=== PATIENT | male | born 1975 | race Caucasian/White ===

== ENCOUNTER 2016-08-02 00:11 | Emergency (ER) | payer BC ==
[2016-08-02] MEDS ORDERED: MORPHINE SULFATE 10 MG/ML INJ IV ONE (01:46)
[2016-08-02] MEDS ORDERED: ONDANSETRON HCL INJ/PF 4 MG/2 ML SDV IV ONE (01:46)
[2016-08-02] MEDS ORDERED: MAG HYDROX/AL HYDROX/SIMETH SUSP 30 ML UDCUP PO ONE (01:50)
[2016-08-02] MEDS ORDERED: METOCLOPRAMIDE HCL ORAL SOLN 10 MG/10 ML UDCUP PO ONE (01:50)
[2016-08-02] MEDS ORDERED: LIDOCAINE 2% VISCOUS SOLN 20 ML UDCUP PO ONE (01:50)
[2016-08-02] MEDS ORDERED: NORMAL SALINE 1000 ML 1,000 ML IV ONE (01:50)
--- NOTE | 2016-08-02 01:52 | ER Document Report ---
ED General - General Chief Complaint: Abdominal Pain Stated Complaint: VOMITING Mode of Arrival: Ambulatory Information source: Patient Notes: 41 yr old male hx of hernia repair presents with complaints of abd pain in the epigastric region with 15 episodes of vomiting over the past 4 hours. pt denies any fevers or chills TRAVEL OUTSIDE OF THE [place] IN LAST 30 DAYS: No - HPI Onset: Just prior to arrival Onset/Duration: Sudden Quality of pain: Burning Severity: Mild Pain Level: 2 Associated symptoms: Nausea, Vomiting Exacerbated by: Denies Relieved by: Denies Similar symptoms previously: No Recently seen / treated by doctor: No - Related Data Allergies/Adverse Reactions: codeine [Codeine] Allergy (Verified 08/14/13 08:40) Past Medical History - Social History Smoking Status: Never Smoker Cigarette use (# per day): No Chew tobacco use (# tins/day): No Smoking Education Provided: No Frequency of alcohol use: Occasional Drug Abuse: None Family History: Reviewed & Not Pertinent - no hx of breast ca Neurological Medical History: Reports: Hx Migraine Renal/ Medical History: Denies: Hx Peritoneal Dialysis - Immunizations Hx Diphtheria, Pertussis, Tetanus Vaccination: No Review of Systems - Review of Systems Notes: REVIEW OF SYSTEMS: CONSTITUTIONAL : Denies fever, chills, or sweats. Denies recent illness. EENT: Denies eye, ear, throat, or mouth pain or symptoms. Denies nasal or sinus congestion or discharge. Denies throat, tongue, or mouth swelling or difficulty swallowing. CARDIOVASCULAR: Denies chest pain. Denies palpitations or racing or irregular heart beat. Denies ankle edema. RESPIRATORY: Denies cough, cold, or chest congestion. Denies shortness of breath, difficulty breathing, or wheezing. GASTROINTESTINAL: Denies abdominal pain or distention. Denies nausea, vomiting , or diarrhea. Denies blood in vomitus, stools, or per rectum. Denies black, tarry stools. Denies constipation. GENITOURINARY: Denies difficulty urinating, painful urination, burning, frequency, blood in urine, or discharge. MUSCULOSKELETAL: Denies back or neck pain or stiffness. Denies joint pain or swelling. SKIN: Denies rash, lesions or sores. HEMATOLOGIC : Denies easy bruising or bleeding. LYMPHATIC: Denies swollen, enlarged glands. NEUROLOGICAL: Denies confusion or altered mental status. Denies passing out or loss of consciousness. Denies dizziness or lightheadedness. Denies headache. Denies weakness or paralysis or loss of use of either side. Denies problems with gait or speech. Denies sensory loss, numbness, or tingling. Denies seizures. PSYCHIATRIC: Denies anxiety or stress. Denies depression, suicidal ideation, or homicidal ideation. ALL OTHER SYSTEMS REVIEWED AND NEGATIVE. Dictation was performed using [employer] voice recognition software PHYSICAL EXAMINATION: GENERAL: Well-appearing, well-nourished and in no acute distress. HEAD: Atraumatic, normocephalic. EYES: Pupils equal round and reactive to light, extraocular movements intact, sclera anicteric, conjunctiva are normal. ENT: Nares patent, oropharynx clear without exudates. Moist mucous membranes. NECK: Normal range of motion, supple without lymphadenopathy LUNGS: Breath sounds clear to auscultation bilaterally and equal. No wheezes rales or rhonchi. HEART: Regular rate and rhythm without murmurs ABDOMEN: Soft, tender in the epigastric region with mild guarding Musculoskeletal: Normal range of motion, no pitting or edema. No cyanosis. NEUROLOGICAL: Cranial nerves grossly intact. Normal speech, normal gait. Normal sensory, motor exams PSYCH: Normal mood, normal affect. SKIN: Warm, Dry, normal turgor, no rashes or lesions noted. Physical Exam - Vital signs Vitals: Temp Pulse Resp BP Pulse Ox 97.5 F 72 20 131/107 H 97 08/02/16 00:29 08/02/16 00:29 08/02/16 00:29 08/02/16 00:29 08/02/16 00:29 Course - Re-evaluation Re-evalutation: 08/02/16 01:59 Lab work imaging pending patient has probable gastric ulcer based on location 08/02/16 04:[address] Argueta surgeon does not believe there is any life- threatening issues 08/02/16 04:25 ct abd negative , will dc home as gerd ulceration , pt otherwise stable After performing a Medical Screening Examination, I estimate there is LOW risk for ACUTE APPENDICITIS, BOWEL OBSTRUCTION, ACUTE CHOLECYSTITIS, PERFORATED DIVERTICULITIS, INCARCERATED HERNIA, PANCREATITIS, PELVIC INFLAMMATORY DISEASE, PERFORATED ULCER, ECTOPIC , or TUBO-OVARIAN ABSCESS, thus I consider the discharge disposition reasonable. Also, there is no evidence or peritonitis , sepsis, or toxicity. The patient and I have discussed the diagnosis and risks , and we agree with discharging home with close follow-up with the understanding that symptoms and presentations can change. We also discussed returning to the Emergency Department immediately if new or worsening symptoms occur. We have discussed the symptoms which are most concerning (e.g., bloody stool, fever, changing or worsening pain, vomiting) that necessitate immediate return. - Vital Signs Vital signs: Temp Pulse Resp BP Pulse Ox 97.5 F 72 18 131/107 H 97 08/02/16 00:29 08/02/16 00:29 08/02/16 01:30 08/02/16 00:29 08/02/16 00:29 - Laboratory Result Diagrams: 08/02/16 02:40 08/02/16 02:40 Laboratory results interpreted by me: 08/02/16 08/02/16 02:40 02:40 WBC 13.7 H Seg Neutrophils % 90.9 H Lymphocytes % 6.0 L Monocytes % 2.7 L Absolute Neutrophils 12.4 H Glucose 136 H ALT 99 H - Diagnostic Test Radiology reviewed: Image reviewed, Reports reviewed Discharge - Discharge Clinical Impression: Abdominal pain Qualifiers: Abdominal location: epigastric Qualified Code(s): R10.13 - Epigastric pain Nausea & vomiting Qualifiers: Vomiting type: unspecified Vomiting Intractability: non-intractable Qualified Code(s): R11.2 - Nausea with vomiting, unspecified Condition: Stable Disposition: HOME, SELF-CARE Instructions: Abdominal Pain ([facility]) Prescriptions: Ondansetron HCl [Zofran 8 mg Tablet] 8 mg PO Q8HP PRN #14. tablet PRN Reason: Famotidine [Pepcid 20 mg Tablet] 20 mg PO DAILY #30 tablet Hydrocodone/Acetaminophen [Dunseith 5-325 mg Tablet] 1 tab PO Q6 #10 tablet Referrals: BELLA MAYORGA MD [ACTIVE STAFF] - Follow up tomorrow
[2016-08-02 02:59] LABS: ABSOLUTE LYMPHOCYTES (AUTO) 0.8 10^3/uL (0.5-4.7); ABSOLUTE MONOCYTES (AUTO) 0.4 10^3/uL (0.1-1.4); ABSOLUTE NEUT (AUTO) 12.4 10^3/uL (1.7-8.2); BASOPHILS % (AUTO) 0.3 % (0-2); EOSINOPHILS % (AUTO) 0.1 % (0-6); HEMATOCRIT 46.1 % (37.9-51.0); HEMOGLOBIN 15.4 g/dL (13.5-17.0); HGB HCT DIFFERENCE 0.1; MEAN CORPUSCULAR HEMOGLOBIN 28.7 pg (27.0-33.4); MEAN CORPUSCULAR HGB CONC 33.4 g/dL (32.0-36.0); MEAN CORPUSCULAR VOLUME 86 fl (80-97); MONOCYTES % (AUTO) 2.7 % (3-13); RED BLOOD COUNT 5.35 10^6/uL (4.35-5.55); RED CELL DISTRIBUTION WIDTH 12.8 % (11.5-14.0); SEGMENTED NEUTROPHILS % (AUTO) 90.9 % (42-78); WHITE BLOOD COUNT 13.7 10^3/uL (4.0-10.5)
[2016-08-02 03:11] LABS: ALANINE AMINOTRANSFERASE 99 U/L (21-72); ALKALINE PHOSPHATASE 75 U/L (38-126); ANION GAP 14 (5-19); ASPARTATE AMINO TRANSFERASE 40 U/L (17-59); BILIRUBIN,TOTAL 0.6 mg/dL (0.2-1.3); BLOOD UREA NITROGEN 14 mg/dL (7-20); CALCIUM 10.1 mg/dL (8.4-10.2); CARBON DIOXIDE 27 mmol/L (22-30); CHLORIDE 103 mmol/L (98-107); CREATININE RESULT 0.96 mg/dL (0.52-1.25); GLUCOSE 136 mg/dL (75-110); LIPASE 100.6 U/L (23-300); POTASSIUM 4.6 mmol/L (3.6-5.0); TOTAL PROTEIN 8.2 g/dL (6.3-8.2)
[2016-08-02 05:44] VITALS: BP 122/90
== END 2016-08-02 05:30 | disposition home or self-care (01) ==
LOC: ER 00:11
DX: R10.13 Epigastric pain (principal); R11.2 Nausea with vomiting, unspecified; Z88.6 Allergy status to analgesic agent
CPT/HCPCS: 99284; 96361; 96374; 96375; 36415; 83690; 85025; 80053; 74177; J3490; J2270; J2405; J7030

== ENCOUNTER 2016-08-03 08:52 | Inpatient (IN) | payer BC ==
[2016-08-03] MEDS ORDERED: ONDANSETRON HCL INJ/PF 4 MG/2 ML SDV IV ONE ×2 (09:30→12:25)
[2016-08-03] MEDS ORDERED: MORPHINE SULFATE 10 MG/ML INJ IV ONE (09:30)
[2016-08-03] MEDS ORDERED: NORMAL SALINE 1000 ML 1,000 ML IV ONE (09:30)
[2016-08-03] MEDS ORDERED: MAG HYDROX/AL HYDROX/SIMETH SUSP 30 ML UDCUP PO ONE (10:04)
[2016-08-03] MEDS ORDERED: METOCLOPRAMIDE HCL ORAL SOLN 10 MG/10 ML UDCUP PO ONE (10:04)
[2016-08-03] MEDS ORDERED: LIDOCAINE 2% VISCOUS SOLN 20 ML UDCUP PO ONE (10:04)
--- NOTE | 2016-08-03 10:11 | EKG REPORT ---
SEVERITY:- OTHERWISE NORMAL ECG - SINUS TACHYCARDIA LEFT AXIS DEVIATION : Confirmed by: Jaymie Monk MD 03-Aug-2016 10:10:49
[2016-08-03 10:20] LABS: APPEARANCE,URINE CLEAR; BILIRUBIN,URINE NEGATIVE (NEGATIVE); GLUCOSE, URINE NEGATIVE (NEGATIVE); KETONES,URINE NEGATIVE (NEGATIVE); LEUKOCYTE ESTERASE,URINE NEGATIVE (NEGATIVE); NITRITE,URINE NEGATIVE (NEGATIVE); PROTEIN,URINE NEGATIVE (NEGATIVE); URINE SPECIFIC GRAVITY 1.016; UROBILINOGEN,URINE NEGATIVE mg/dL (<2.0)
[2016-08-03 11:33] LABS: ABSOLUTE EOSINOPHILS # (AUTO) 0.1 10^3/uL (0.0-0.6); ABSOLUTE LYMPHOCYTES (AUTO) 1.6 10^3/uL (0.5-4.7); ABSOLUTE MONOCYTES (AUTO) 0.8 10^3/uL (0.1-1.4); ABSOLUTE NEUT (AUTO) 9.9 10^3/uL (1.7-8.2); BASOPHILS % (AUTO) 0.4 % (0-2); EOSINOPHILS % (AUTO) 0.8 % (0-6); HEMATOCRIT 49.3 % (37.9-51.0); HEMOGLOBIN 16.2 g/dL (13.5-17.0); HGB HCT DIFFERENCE -0.7; LYMPHOCYTES % (AUTO) 12.8 % (13-45); MEAN CORPUSCULAR HEMOGLOBIN 28.5 pg (27.0-33.4); MEAN CORPUSCULAR HGB CONC 32.9 g/dL (32.0-36.0); MEAN CORPUSCULAR VOLUME 87 fl (80-97); MONOCYTES % (AUTO) 6.6 % (3-13); RED BLOOD COUNT 5.69 10^6/uL (4.35-5.55); SEGMENTED NEUTROPHILS % (AUTO) 79.4 % (42-78); WHITE BLOOD COUNT 12.5 10^3/uL (4.0-10.5)
[2016-08-03 11:45] LABS: ALANINE AMINOTRANSFERASE 123 U/L (21-72); ALBUMIN 4.6 g/dL (3.5-5.0); ALKALINE PHOSPHATASE 81 U/L (38-126); ANION GAP 15 (5-19); ASPARTATE AMINO TRANSFERASE 68 U/L (17-59); BILIRUBIN,TOTAL 1.5 mg/dL (0.2-1.3); BLOOD UREA NITROGEN 13 mg/dL (7-20); CALCIUM 9.6 mg/dL (8.4-10.2); CARBON DIOXIDE 26 mmol/L (22-30); CHLORIDE 100 mmol/L (98-107); CREATININE RESULT 0.83 mg/dL (0.52-1.25); GLUCOSE 105 mg/dL (75-110); POTASSIUM 4.6 mmol/L (3.6-5.0); SODIUM 140.5 mmol/L (137-145); TOTAL PROTEIN 7.6 g/dL (6.3-8.2)
[2016-08-03] MEDS ORDERED: HYDROMORPHONE HCL INJ/PF 2 MG/ML AMPULE IV ONE (12:25)
--- NOTE | 2016-08-03 12:26 | ER Document Report ---
ED GI/ - General Chief Complaint: Abdominal Pain Stated Complaint: ABDOMINAL PAIN Mode of Arrival: Ambulatory Information source: Patient Notes: 41-year-old male presents to the emergency department complaining of right upper quadrant abdominal pain. Patient reports non-provoked, sharp/stabbing pain to right upper quadrant worse with movement and deep breathing. Reports associated multiple episodes of nausea/vomiting. Patient states symptoms started approximately 2 days ago and was evaluated in this emergency department but symptoms have persisted. States initially pain was to epigastric area but now has moved to right upper quadrant and is worse in intensity. Denies fever, chest pain, blood in emesis or stool. TRAVEL OUTSIDE OF THE [place] IN LAST 30 DAYS: No - HPI Patient complains to provider of: Abdominal pain Timing/Duration: Persistent Quality of pain: Sharp, Stabbing Severity at maximum: Severe Severity in ED: Moderate Pain Level: 4 Location: RUQ Associated symptoms: Nausea, Vomiting Exacerbated by: Supine, Movement, Deep breathing Relieved by: Sitting, Remaining still Similar symptoms previously: Yes Recently seen / treated by doctor: Yes - Related Data Allergies/Adverse Reactions: codeine [Codeine] Adverse Reaction (Unknown, Verified 08/03/16 13:01) VOMITING Home Medications: Current Home Medications No Home Medications 08/03/16 [History] Past Medical History - General Information source: Patient, Relative - Social History Smoking Status: Never Smoker Chew tobacco use (# tins/day): No Frequency of alcohol use: None Drug Abuse: None Lives with: Family Family History: Reviewed & Not Pertinent - no hx of breast ca Patient has suicidal ideation: No Patient has homicidal ideation: No Neurological Medical History: Reports: Hx Migraine Renal/ Medical History: Denies: Hx Peritoneal Dialysis Past Surgical History: Reports: Hx Abdominal Surgery - hernia repair with mesh - Immunizations Hx Diphtheria, Pertussis, Tetanus Vaccination: Yes Review of Systems - Review of Systems Constitutional: No symptoms reported EENT: No symptoms reported Cardiovascular: No symptoms reported Respiratory: No symptoms reported Gastrointestinal: See HPI Genitourinary: No symptoms reported Male Genitourinary: No symptoms reported Musculoskeletal: No symptoms reported Skin: No symptoms reported Hematologic/Lymphatic: No symptoms reported Neurological/Psychological: No symptoms reported -: Yes All other systems reviewed and negative Physical Exam - Vital signs Vitals: Temp Pulse Resp BP Pulse Ox 97.6 F 116 H 20 152/99 H 95 08/03/16 09:01 08/03/16 09:01 08/03/16 09:01 08/03/16 09:01 08/03/16 09:01 Interpretation: Normal - General General appearance: Appears well, Alert In distress: None - HEENT Head: Normocephalic, Atraumatic Eyes: Normal Pupils: PERRL - Respiratory Respiratory status: No respiratory distress Chest status: Nontender Breath sounds: Normal - CTAB Chest palpation: Normal - Cardiovascular Rhythm: Regular Heart sounds: Normal auscultation Murmur: No Pulses: Normal: Radial Normal capillary refill: Yes - Abdominal Inspection: Normal Distension: No distension Bowel sounds: Normal Tenderness: Tender - Tenderness with palpation to right upper quadrant. No: McBurney's point Organomegaly: No organomegaly - Back Back: Normal, Nontender - Extremities General upper extremity: Normal inspection, Nontender, Normal color, Normal ROM , Normal temperature General lower extremity: Normal inspection, Nontender, Normal color, Normal ROM , Normal temperature, Normal weight bearing. No: Alex's sign - Neurological Neuro grossly intact: Yes Cognition: Normal Orientation: AAOx4 Alexa Coma Scale Eye Opening: Spontaneous Deeth Coma Scale Verbal: Oriented Alexa Coma Scale Motor: Obeys Commands Alexa Coma Scale Total: 15 Speech: Normal Motor strength normal: LUE, RUE, LLE, RLE Sensory: Normal - Psychological Associated symptoms: Normal affect, Normal mood - Skin Skin Temperature: Warm Skin Moisture: Dry Skin Color: Normal Course - Re-evaluation Re-evalutation: 08/03/16 12:15 Patient hemodynamically stable, in no distress, afebrile. AST, ALT, Alk phos and total bilirubin slightly elevated when compared to previous lab work. RUQ abdominal ultrasound shows biliary sludge and possible gallstones. Patient presentation and findings were discussed with surgeon Dr. Argueta who evaluated patient in the ED and agrees to assume care and admit for likely cholecystectomy. - Vital Signs Vital signs: Temp Pulse Resp BP Pulse Ox 97.6 F 116 H 18 113/87 H 93 08/03/16 09:01 08/03/16 09:01 08/03/16 10:20 08/03/16 10:20 08/03/16 10:20 - Laboratory Result Diagrams: 08/03/16 09:20 08/03/16 09:20 Laboratory results interpreted by me: 08/03/16 08/03/16 09:20 09:20 WBC 12.5 H RBC 5.69 H Seg Neutrophils % 79.4 H Lymphocytes % 12.8 L Absolute Neutrophils 9.9 H Total Bilirubin 1.5 H AST 68 H ALT 123 H - Diagnostic Test Radiology reviewed: Image reviewed, Reports reviewed - EKG Interpretation by Me EKG shows normal: Sinus rhythm, [place], Intervals, QRS Complexes, ST-T Waves Rate: Tachycardia Rhythm: NSR When compared to previous EKG there are: No significant change Discharge - Discharge Clinical Impression: RUQ abdominal pain Condition: Stable Disposition: ADMITTED INPATIENT Admitting Provider: Surgicalist - Dr. rAgueta Unit Admitted: Surgical Floor
[2016-08-03] MEDS ORDERED: ONDANSETRON HCL INJ/PF 4 MG/2 ML SDV IV PRN (12:48)
--- NOTE | 2016-08-03 13:38 | HISTORY AND PHYSICAL E ---
History and Physical NAME: MIGUEL SOTO : 1975 AGE: 41Y ADMITTED: 08/03/2016 ROOM: REASON FOR ADMISSION: Cholelithiasis with biliary colic. HISTORY OF PRESENT ILLNESS: A 41-year-old male who presented to the emergency room complaining of significant right upper quadrant pain radiating to the back without any history of nausea, vomiting, fever or chills. The patient was seen in the emergency room approximately 36 hours ago by me when he presented to the hospital with epigastric pain but when seen by me, he had no abdominal tenderness and CAT scan of the abdomen was normal and patient was sent home. However, over the last 36 hours, the patient developed right upper quadrant pain that was 8/10, which was unrelieved with position or dietary status. The patient returned to the emergency room with stable vital signs and on examination, he now had epigastric and right upper quadrant tenderness. The patient underwent laboratory data, evaluation, and was found to have a mildly elevated white count at 12,000 but his H and H showed 16.2 and 49.3, and his total bilirubin was 1.5 with elevated AST and ALT at 68 and 123, respectively. The patient then underwent an ultrasound of the abdomen which revealed increased echogenicity in the dependent portion of the gallbladder, most consistent with biliary sludge, although tiny gallstones could not be excluded. There was no gallbladder wall thickening or pericholecystic fluid. The patient was informed of the findings and admission has been recommended for laparoscopic cholecystectomy in the morning. PAST MEDICAL AND SURGICAL HISTORY: The patient has no history of diabetes mellitus, hypertension, cardiac, renal, pulmonary or liver disease or bleeding tendency. No history of anesthesia problems in the family. The patient had umbilical hernia approximately 2 years ago repaired. The patient denies any injuries in the past. ALLERGIES: NONE. MEDICATIONS: None. REVIEW OF SYSTEMS: Patient denies any symptoms referable to the ear, nose and throat, respiratory or cardiovascular systems. Gastrointestinal symptoms as in history of present illness. Patient denies any symptoms referable to genitourinary, musculoskeletal, integumentary, lymphatic, endocrine or psychiatric systems. SOCIAL HISTORY: The patient does not smoke or drink. 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 PHYSICAL EXAMINATION: GENERAL: Reveals a 41-year-old male who was mildly obese, who is normally developed, who is in no acute distress at this time. VITAL SIGNS: Blood pressure 115/87, pulse 102, respirations 18, saturation is 93% on room air. HEENT: The patient has no conjunctival pallor or scleral icterus. Mucous membranes are pink. NECK: Supple without nodes, masses, thyroid, JVD or bruits. Trachea midline. CHEST: Chest wall shows good excursions. LUNGS: Clear anteriorly with good entry bilaterally. CARDIOVASCULAR: Patient is mildly tachycardic. There are no murmurs or gallops noted. ABDOMEN: Soft, obese with mild to moderate epigastric and right upper quadrant tenderness with mild guarding. There is a negative Vazquez sign. There is no organomegaly or masses. Bowel sounds are present. EXTREMITIES: Show full range of motion without edema or tenderness. IMPRESSION: Cholelithiasis with biliary colic. PLAN: The patient to be admitted to the hospital and scheduled for laparoscopic cholecystectomy in the a.m. DICTATING PHYSICIAN: SCOTT HOU M.D. [id number] PHY#: [id number] ID: [id number] JOB#: [id number] ACCT: [id number] cc:SCOTT HOU M.D. >
[2016-08-03] MEDS ORDERED: INFLUENZA ADLT QUAD (36MOS+) 2016-17 VAC 0.5 ML SYR IM PRN (14:37)
[2016-08-03] MEDS: CEFAZOLIN 1 GM/D5W RTU 1 GM/50 ML RTUPB IV SCH ×2 (14:50→21:59)
[2016-08-03] MEDS: OXYCODONE-ACETAMINOPHEN 5-325 MG TABLET PO PRN ×2 (14:50→19:56)
[2016-08-04] MEDS: CEFAZOLIN 1 GM/D5W RTU 1 GM/50 ML RTUPB IV SCH ×2 (03:42→09:26)
[2016-08-04] MEDS: ENOXAPARIN SODIUM INJ 40 MG/0.4 ML DISP.SYRIN SUBCUT SCH (08:22)
[2016-08-04] MEDS ORDERED: BUPIVACAINE HCL 0.25 % INJ/PF (2.5 MG/1 ML) 30 ML VIAL ONE (08:24)
[2016-08-04] MEDS ORDERED: FENTANYL CITRATE INJ/PF 250 MCG/5 ML AMPULE ONE (09:03)
[2016-08-04] MEDS ORDERED: PROPOFOL INJ 200 MG/20 ML VIAL IV ONE (09:04)
[2016-08-04] MEDS ORDERED: MIDAZOLAM 2 MG/2 ML INJ ONE (09:04)
[2016-08-04] MEDS ORDERED: CEFAZOLIN INJ 1 GM VIAL ONE (09:21)
[2016-08-04] MEDS ORDERED: MORPHINE SULFATE 10 MG/ML INJ IV PRN (10:09)
[2016-08-04] MEDS ORDERED: PROMETHAZINE HCL INJ 25 MG/1 ML VIAL IV PRN ×2 (10:09)
[2016-08-04] MEDS ORDERED: MEPERIDINE HCL/PF INJ 25 MG/1 ML DISP.SYRIN IV PRN (10:09)
[2016-08-04] MEDS ORDERED: FENTANYL CITRATE INJ/PF 100 MCG/2 ML AMPUL IV PRN ×3 (10:09)
[2016-08-04] MEDS ORDERED: DIPHENHYDRAMINE HCL 50 MG/ML VIAL IV PRN (10:09)
[2016-08-04] MEDS ORDERED: ONDANSETRON HCL INJ/PF 4 MG/2 ML SDV IV PRN (11:00)
[2016-08-04] MEDS ORDERED: OXYCODONE-ACETAMINOPHEN 5-325 MG TABLET PO ONE (11:02)
--- NOTE | 2016-08-04 11:04 | Operative Report ---
Operative Report DATE OF SURGERY: 08/04/16 PREOPERATIVE DIAGNOSIS: Acute cholecystitis with cholelithiasis POSTOPERATIVE DIAGNOSIS: Same OPERATION: Laparoscopic cholecystectomy. SURGEON: ISAI SARAVIA ANESTHESIA: GA TISSUE REMOVED OR ALTERED: 1 gallbladder with contents COMPLICATIONS: None ESTIMATED BLOOD LOSS: 50 mL INTRAOPERATIVE FINDINGS: See below PROCEDURE: After obtaining informed consent, the patient was taken to the operating room. General Anesthesia was induced; the arms were extended, and the abdomen was exposed, and prepped and draped in a sterile fashion. Instrumentation was set up for laparoscopic cholecystectomy. Surgical plan and surgical timeout were conducted. Because the patient had previous abdominal wall surgery, specifically mesh implantation at the umbilicus from previous umbilical herniorrhaphy, we proceeded with very's needle insertion in the right upper quadrant. A small stab was made with a knife, very's needle inserted and pneumoperitoneum was established. The verres needle was removed and a 5 mm trocar was inserted and a 5 mm flexible laparoscope was inserted. Visualization of the peritoneal cavity confirmed safe uneventful entry. Under direct visualization 3 additional 5 mm ports were established, one in the subxiphoid position and second in the subcostal position. The fourth port was placed above the umbilicus, proximally 8 cm, at a site above the visibly present wrinkled mesh; this appeared to be a midweight mesh with some element of holding. Because the patient had no palpable umbilical hernia, we elected to stay away from the mesh and the umbilicus. The findings were significant for acute, pregangrenous cholecystitis. The gallbladder was aspirated with the suction trocar for proximally 60 mL of dark bile. Patient was placed in extreme reverse Trendelenburg position and tilted to the left side. This afforded visualization of the neck of the gallbladder. A grasper was placed on the fundus of the gallbladder and the gallbladder is elevated over the right surface of the liver; a second grasper was used to grasp the infundibulum of the gallbladder. We used a combination of blunt, suction, electrocautery, and LigaSure dissection to clear the neck of the gallbladder. The neck of the gallbladder and junction with the cystic duct was dissected out. The Cystic artery was in its usual location medial and cephalad to the cystic duct. Photos were taken. The cystic artery was surrounded with a right angle clamp, clipped twice proximally and divided with LigaSure device. We now opened the triangle of Calot by dividing the peritoneal reflection on both the medial and lateral sides of the cystic duct infundibular junction. The critical view was obtained. Photos were obtained. We now milked the cystic duct of any possible stones, clipped the cystic duct approximately 2 times once distally and divided it with scissors. The gallbladder was now removed from the undersurface of the liver using hook cautery dissection. He cause of the marked thickened wall of the gallbladder, and edema, there was much suctioning, irrigation, away Tiffany which prolonged the operation by about 30 minutes. Nonetheless the gallbladder came off of the undersurface of the gallbladder in an uneventful fashion. Graspers were repositioned and the gallbladder was removed uneventfully from the abdominal cavity through the super umbilical port site incision after placing it in a specimen bag. The specimen was examined, then passed off to pathology for permanent analysis. We returned to the peritoneal cavity check for bleeding, and evidence of bile leak, and there was none. We Confirmed satisfactory placement of clips on cystic duct and cystic artery were secured . At this point we felt the operation was complete. The subcutaneous tissue was then anesthetized with quarter percent Marcaine Sponge and needle counts are correct. All ports removed under direct visualization pneumoperitoneum evacuated, the supraumbilical port site closed with a 0 Vicryl and 5 mm port skin wounds closed with 3-0 Vicryl suture, benzoin and Steri-Strips. The patient was extubated, and taken to the recovery room in stable condition.
--- NOTE | 2016-08-04 11:11 | PDOC DISCHARGE SUMMARY ---
Discharge Summary (SDC) - Discharge Final Diagnosis: Acute cholecystitis with cholelithiasis Date of Surgery: 08/04/16 Discharge Date: 08/04/16 Condition: Stable Treatment or Instructions: [facility] [address] [place] [id number] Discharge Instructions: Laparoscopic Surgery 1. General Information: a. DO NOT DRIVE a car or operate dangerous machinery for 3-4 days or while taking narcotic pain pills. b. DO NOT consume alcohol, tranquilizers, sleeping medications or any non- prescribed medications for 24 hours unless approved by your doctor or as long as taking narcotic prescription medications. c. DO NOT make important decisions or sign any important papers for the first 24 hours after surgery. d. When discharged home the same day of surgery have a responsible person with you for the first night. 2. Activity Restrictions: 4 weeks. a. NO heavy lifting, straining abdominal muscles, bending over a lot, yard work, house work, or sports for [address] for 3-4 days or while taking __PERCOCET__ . c. It is fine to go for walks, up and down steps, ride in a car. d. Elevate your head when sleeping/resting. 3. Treatment: a. You may shower 24 hours after surgery, no baths or swimming for 2 weeks. Remove band-aids or dressings before shower but leave paper strips (steri-strips ) on the skin to fall off on their own. If still on at postoperative visit they will be removed then. b. Drainage of fluid or blood is not unusual from an incision. If occurs, you can clean with peroxide and cotton ball daily and cover with dry gauze until the wound seals. c. If a lot of bleeding occurs, you can hold pressure with a gauze or cloth over the site for 10 minutes and it will usually stop. If bleeding continues you will need to call for possible evaluation in office or emergency room. 4. Medications: a. ___PERCOCET___ may be taken for pain as needed, one or two tablets every 4- 6 hours. Stop the narcotic when able since you cannot take it and drive, and they cause constipation. You may switch to plain Tylenol, Advil or Aleve as you transition from the narcotic. Many adults find good pain relief with Advil 600- 800 mg three times a day with meals. This can cause indigestion, ulcers, and kidney problems with long-term use. b. You should resume all normal medications unless a change is specified by your doctors. 5. Diet: Begin with clear liquids and may progress to your normal diet if not nauseated. No high fat, high protein foods the day of surgery. Normal diet 6. The following may occur after laparoscopic surgery: a. Shoulder or upper back ache from retained gas that should resolve in 1-2 days b. Soreness and bruising at incision sites will resolve with time. c. Scrotal swelling (labia in women) and bruising is often seen after hernia surgery. d. Sore throat e. Fatigue may last days to weeks. f. Difficulty urinating may occur and may need to come into emergency room for urinary catheter placement. 7. Notify Physician If: a. Worsening or pain not improved with pain medication b. Persistent nausea and vomiting c. Fever above 101 d. Persistent bleeding or swelling at operative site e. Unable to urinate and uncomfortable bladder 6-8 hours after surgery 8..Follow Up Care: a. Schedule a follow up appointment with your doctor for 2 weeks. In the event of any postoperative problems or questions or you may call the office during business hours or the On-Call physician evenings and weekends at [facility]. [facility] I understand the instructions for my postoperative care as described above and a copy has been given to me. Patient/Significant Other Witness Date Prescriptions: Oxycodone HCl/Acetaminophen [Percocet 5-325 mg Tablet] 1 tab PO ASDIR PRN #20 tab PRN Reason: Discharge Diet: As Tolerated Discharge Activity: Activity As Tolerated Report the Following to Your Physician Immediately: Nausea, Vomiting, Increase in Pain, Fever over 101 Degrees, Unusual Bleeding, Redness, Swelling, Warmth, Drainage-Foul Smelling
--- NOTE | 2016-08-04 11:14 | PDOC PROGRESS REPORT ---
Subjective Progress Note for:: 08/04/16 Subjective:: Patient complaining of lateral quadrant pain Physical Exam Vital Signs: Temp Pulse Resp BP Pulse Ox 98.2 F 90 16 132/83 H 95 08/04/16 07:25 08/04/16 07:25 08/04/16 07:25 08/04/16 07:25 08/04/16 07:25 Intake & Output 08/03/16 08/04/16 08/05/16 06:59 06:59 06:59 Intake Total 400 1070 Output Total 1251 Balance 400 -181 Weight 111.5 kg 104.7 kg General appearance: PRESENT: other - Patient evaluated in the preoperative holding area; he was awake alert and oriented 4. GI/Abdominal exam: PRESENT: other - The abdominal exam revealed exquisite tenderness in the right upper quadrant. There was scar involving the umbilicus consistent with previous abdominal wall hernia; patient reports mesh was used. Results Impressions: Chest X-Ray 08/03/16 09:36 IMPRESSION: Linear densities in the lung bases most consistent with subsegmental atelectasis. Visualized lung lomeli are otherwise clear. Other findings as noted above Abdomen Ultrasound 08/03/16 10:36 IMPRESSION: There is some increased echogenicity in the dependent portion of the gallbladder lumen most consistent biliary sludge however I cannot exclude tiny gallstones. Limited study as noted above. No other significant abnormalities were identified. Assessment & Plan - Diagnosis (1) Cholecystitis, acute with cholelithiasis Is this a current diagnosis for this admission?: YesPlan: 1. Explained diagnosis, and treatment plan, specifically laparoscopic, possible open cholecystectomy. The mechanics of the operation as well as an explanation of the risks benefits and alternatives including bleeding, infection , bile duct injury, need for additional surgery were all discussed. 2. Because of the patient's previous abdominal wall surgery, placement of mesh , as well as being a male with acute presentation, I explained that prolonged surgery, additional ports, and even a higher risk of conversion to procedure were all factors making his operation slightly higher risk. Expresses understanding and agreed to proceed. - Time Time Spent with patient: 15-24 minutes
[2016-08-04] MEDS ORDERED: SUCCINYLCHOLINE CHLORIDE INJ 200 MG/10 ML VIAL ONE (14:29)
[2016-08-04] MEDS ORDERED: NEOSTIGMINE METHYLSULFATE 10 MG/10 ML VIAL ONE (14:29)
[2016-08-04] MEDS ORDERED: DEXAMETHASONE SOD PHOSPHATE INJ 4 MG/1 ML VIAL ONE (14:29)
[2016-08-04] MEDS ORDERED: METOCLOPRAMIDE HCL INJ/PF 10 MG/2 ML SDV ONE (14:29)
[2016-08-04] MEDS ORDERED: ROCURONIUM BROMIDE INJ 50 MG/5 ML VIAL IV ONE (14:29)
[2016-08-04] MEDS ORDERED: LIDOCAINE 2% INJ-PF (20 MG/ML) 10 ML AMPUL ONE (14:29)
[2016-08-04] MEDS ORDERED: GLYCOPYRROLATE INJ 0.4 MG/2 ML VIAL ONE (14:29)
[2016-08-04] MEDS ORDERED: VECURONIUM BROMIDE INJ 10 MG VIAL IV ONE (14:29)
[2016-08-04] MEDS ORDERED: ONDANSETRON HCL INJ/PF 4 MG/2 ML SDV ONE (14:29)
[2016-08-04] MEDS: HYDROMORPHONE HCL INJ/PF 2 MG/ML AMPULE IV PRN ×2 (15:18→19:34)
[2016-08-04] MEDS ORDERED: CEFAZOLIN SODIUM 1 GM in DEXTROSE 5%-WATER 50 ML IV ONE (16:00)
[2016-08-04] MEDS ORDERED: CEFAZOLIN 1 GM/D5W RTU 50 ML IV ONE (16:00)
[2016-08-04] MEDS: CEFAZOLIN SODIUM 1 GM in DEXTROSE 5%-WATER 50 ML IV SCH (21:01)
[2016-08-05] MEDS: HYDROMORPHONE HCL INJ/PF 2 MG/ML AMPULE IV PRN (01:20)
[2016-08-05] MEDS: CEFAZOLIN SODIUM 1 GM in DEXTROSE 5%-WATER 50 ML IV SCH ×2 (04:06→09:06)
[2016-08-05 08:28] VITALS: BP 124/82
--- NOTE | 2016-08-05 08:32 | PDOC PROGRESS REPORT ---
Subjective Progress Note for:: 08/05/16 Subjective:: Feels well. Tolerating diet this morning and feels much better than prior to surgery. Physical Exam Vital Signs: Temp Pulse Resp BP Pulse Ox 97.4 F 65 16 124/82 96 08/05/16 07:14 08/05/16 07:14 08/05/16 07:14 08/05/16 07:14 08/05/16 07:14 Pulse Oximeter Continuous Start: 08/04/16 15: 20 Freq: Status: Complete Document 08/04/16 16:55 [facility] (Rec: 08/04/16 17:32 [facility] [email or web address]) Pulse Oximetry Assessment Oxygen Saturation (92-100) 91 Oxygen Delivery Method Room Air Equipment Usage Equipment in Use Continuous SpO2 Machine # [id number] Intake & Output 08/04/16 08/05/16 08/06/16 06:59 06:59 06:59 Intake Total 400 3250 Output Total 1303 Balance 400 1947 Weight 111.5 kg 109.5 kg General appearance: PRESENT: no acute distress Respiratory exam: PRESENT: clear to auscultation juanita Cardiovascular exam: PRESENT: RRR GI/Abdominal exam: PRESENT: other - Soft, nondistended, minimal tenderness. Wounds clean dry and intact. Extremities exam: PRESENT: other - No swelling and no tenderness. Results Impressions: Abdomen Ultrasound 08/03/16 10:36 IMPRESSION: There is some increased echogenicity in the dependent portion of the gallbladder lumen most consistent biliary sludge however I cannot exclude tiny gallstones. Limited study as noted above. No other significant abnormalities were identified. Chest X-Ray 08/04/16 12:40 IMPRESSION: Bibasilar atelectatic change improved since the recent chest x-ray. Assessment & Plan - Diagnosis (1) Cholecystitis, acute with cholelithiasis Is this a current diagnosis for this admission?: YesPlan: Status post laparoscopic cholecystectomy. Doing well. Will discharge patient home today.
[2016-08-05] MEDS: OXYCODONE-ACETAMINOPHEN 5-325 MG TABLET PO PRN (09:06)
[2016-08-05] MEDS: ENOXAPARIN SODIUM INJ 40 MG/0.4 ML DISP.SYRIN SUBCUT SCH (09:06)
--- NOTE | 2016-08-05 09:08 | DISCHARGE SUMMARY E ---
Discharge Summary NAME: MIGUEL SOTO : 1975 AGE: 41Y ADMITTED: 08/03/2016 DISCHARGED: 08/05/2016 DISCHARGE DIAGNOSIS: Acute cholecystitis. PROCEDURE PERFORMED DURING HOSPITALIZATION: Laparoscopic cholecystectomy performed by Dr. Tanner Ramirez on 08/04/2016. HOSPITAL COURSE: The patient was initially admitted and subsequently taken to the operating room where he underwent the above mentioned surgery. He did well postoperatively. He was tolerating a diet well with marked improvement of his abdominal symptoms. The patient is now being discharged to home in good condition. He will follow up with Dr. Ramirez in a couple of weeks. He is encouraged to stay active at home. He may follow a low fat diet at home. DISCHARGE MEDICATION: Percocet 5/325 one p.o. q.4 hours p.r.n. pain. DICTATING PHYSICIAN: DAGMAR TORRES M.D. [id number] PHY#: [id number] ID: [id number] JOB#: [id number] ACCT: [id number] cc:DAGMAR TORRES M.D. . [facility],
== END 2016-08-05 11:01 | disposition home or self-care (01) | DRG 419 ==
LOC: ER 08:52 → EH 12:37 → UNDOADMIN 13:04 → EH 14:00 → 4N 14:00
PROVIDERS: ATTEND Surgery
PROC: 0FT44ZZ Resection of Gallbladder, Percutaneous Endoscopic Approach (ICD-10-PCS; principal; 2016-08-04 09:00)
DX: K80.00 Calculus of gallbladder with acute cholecystitis without obstruction (principal); E66.9 Obesity, unspecified
CPT/HCPCS: 36415; 71010; 71020; 76705; 790; 80053; 81001; 83690; 85025; 87040; 88304; 90686; 93005; 93010; 94762; 96361; 96374; 96375; 96376; 99285; J0330; J0690; J1100; J1170; J2250; J2270; J2405; J2704; J2765; J3010; J3490; J7030

== ENCOUNTER 2018-02-12 22:30 | Emergency (ER) | payer BC ==
[2018-02-13] MEDS ORDERED: PROCHLORPERAZINE EDISYLATE INJ 10 MG/2 ML VIAL IV ONE (00:58)
[2018-02-13] MEDS ORDERED: KETOROLAC TROMETHAMINE INJ/PF 30 MG/1 ML SDV IV ONE (00:58)
[2018-02-13] MEDS ORDERED: DIPHENHYDRAMINE HCL 50 MG/ML VIAL IV ONE (00:58)
[2018-02-13] MEDS ORDERED: NORMAL SALINE 1000 ML 1,000 ML IV ONE (00:59)
--- NOTE | 2018-02-13 01:38 | ER Document Report ---
ED Headache - General Chief Complaint: Headache Stated Complaint: MIGRAINE Time Seen by Provider: 02/13/18 00:58 Mode of Arrival: Ambulatory Information source: Patient Notes: 43-year-old male presents to ED for complaint of headache since 8 PM. He states he has had some nausea no vomiting. He states he has had a history of migraines and has taken Imitrex in the past but that never really helped. He denies any history of blood pressure. I reevaluated blood pressure in the ER and it was 170/92 during my assessment. Patient is alert and oriented respirations regular and unlabored pupils equal and react to light able to answer in full sentences and able to walk with a even steady gait. TRAVEL OUTSIDE OF THE [place] IN LAST 30 DAYS: No - HPI Patient complains to provider of: "Migraine" Patient reports: Hx chronic headaches Onset: This evening Onset was: Gradual Timing: Still present Quality of pain: Throbbing Severity: Severe Pain Level: 5 Associated symptoms: Nausea/vomiting - Nausea no vomiting Exacerbated by: Light, Noise Similar symptoms previously: Yes Recently seen / treated by doctor: No - Related Data Allergies/Adverse Reactions: codeine [Codeine] Adverse Reaction (Unknown, Verified 08/03/16 13:01) VOMITING Past Medical History - General Information source: Patient - Social History Smoking Status: Former Smoker Cigarette use (# per day): No Chew tobacco use (# tins/day): No Smoking Education Provided: No Frequency of alcohol use: Rare Drug Abuse: None 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 Lives with: Family Family History: Reviewed & Not Pertinent Patient has suicidal ideation: No Patient has homicidal ideation: No - Past Medical History Cardiac Medical History: Reports: None Pulmonary Medical History: Reports: None EENT Medical History: Reports: None Neurological Medical History: Reports: Hx Migraine Endocrine Medical History: Reports: None Renal/ Medical History: Reports: None Malignancy Medical History: Reports None GI Medical History: Reports: None Musculoskeletal Medical History: Reports Hx Arthritis, Reports Hx Musculoskeletal Trauma Skin Medical History: Reports None Psychiatric Medical History: Reports: None Traumatic Medical History: Reports: Hx Fractures - Bilateral ankles all toes all fingers clavicle and coccyx, dislocated shoul Infectious Medical History: Reports: None Past Surgical History: Reports: Hx Cholecystectomy, Hx Myringotomy, Hx Umbilical Hernia - With mesh - Immunizations Immunizations up to date: Yes Hx Diphtheria, Pertussis, Tetanus Vaccination: Yes Review of Systems - Review of Systems Constitutional: No symptoms reported EENT: No symptoms reported Cardiovascular: No symptoms reported Respiratory: No symptoms reported Gastrointestinal: Nausea. denies: Vomiting Genitourinary: No symptoms reported Male Genitourinary: No symptoms reported Musculoskeletal: No symptoms reported Skin: No symptoms reported Hematologic/Lymphatic: No symptoms reported Neurological/Psychological: Headaches. denies: Weakness, Gait changes, Speech impairment, Numbness -: Yes All other systems reviewed and negative Physical Exam - Vital signs Vitals: Temp Pulse Resp BP Pulse Ox 97.6 F 62 18 169/116 H 98 02/12/18 23:00 02/12/18 23:00 02/12/18 23:00 02/12/18 23:00 02/12/18 23:00 Interpretation: Normal - General General appearance: Appears well, Alert - HEENT Head: Normocephalic, Atraumatic Eyes: Normal Pupils: PERRL Ears: Normal External canal: Normal Tympanic membrane: Normal Sinus: Normal Nasal: Normal Mouth/Lips: Normal Mucous membranes: Normal Pharynx: Normal Neck: Normal - Respiratory Respiratory status: No respiratory distress Chest status: Nontender Breath sounds: Normal Chest palpation: Normal - Cardiovascular Rhythm: Regular Heart sounds: Normal auscultation Murmur: No - Abdominal Inspection: Normal Distension: No distension Bowel sounds: Normal Tenderness: Nontender Organomegaly: No organomegaly - Back Back: Normal, Nontender - Extremities General upper extremity: Normal inspection, Nontender, Normal color, Normal ROM , Normal temperature General lower extremity: Normal inspection, Nontender, Normal color, Normal ROM , Normal temperature, Normal weight bearing. 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 He was treated with Compazine 10 mg IV Benadryl 50 mg IV and Toradol 15 mg IV. He was also given a liter of fluids. His headache was a 5/5 and we started and a 0/5. His blood pressure was very elevated before the medications and it is now 136/86 after the medications. Patient states he is feeling tremendously better. Will discharge patient home with a prescription of Compazine to take with Benadryl and ibuprofen. Patient has been instructed to follow-up with primary doctor for the elevated blood pressure. After performing a Medical Screening Examination, I estimate there is LOW risk for ACUTE GLAUCOMA, TEMPORAL ARTERITIS, MENINGITIS , INCRANIAL HEMORRHAGE, or ISCHEMIC STROKE thus I consider the discharge disposition reasonable. I have reevaluated this patient multiple times and no significant life threatening changes are noted. The patient and I have discussed the diagnosis and risks, and we agree with discharging home with close follow-up with the understanding that symptoms and presentations can change. We also discussed returning to the Emergency Department immediately if new or worsening symptoms occur. We have discussed the symptoms which are most concerning (e.g., changing or worsening symptoms, new numbness or weakness, vomiting, fever) that necessitate immediate return. - Vital Signs Vital signs: Temp Pulse Resp BP Pulse Ox 97.4 F 80 16 136/86 H 95 02/13/18 02:17 02/13/18 02:17 02/13/18 02:17 02/13/18 02:11 02/13/18 02:17 Discharge - Discharge Clinical Impression: Headache, migraine Qualifiers: Migraine type: unspecified Status migrainosus presence: without status migrainosus Intractability: not intractable Qualified Code(s): G43.909 - Migraine, unspecified, not intractable, without status migrainosus Condition: Stable Disposition: HOME, SELF-CARE Instructions: Family Physicians / Practices Additional Instructions: HEADACHE: The physician does not feel that the headache you are experiencing has a serious underlying cause. Most headaches are due to emotional stress, with resultant muscle tension (tension headache). Occasionally, headaches are secondary to changes in the blood vessels of the scalp (vascular headache and migraine headache). Sometimes, a headache is the first symptom of another developing illness, such as a viral infection. You have no evidence of stroke, bleeding, meningitis, or other serious cause of your headache. The treatment of headaches varies with the severity and cause of the pain. Not all headaches need pain shots. In fact, there is evidence that using narcotics for headaches may make them worse in the long run. The physician will determine the therapy that's in your best interest. If you develop a fever, if the headache is different from any you've previously experienced, or if the headache progressively worsens, then call your physician at once or go to the emergency room. USE OF DIPHENHYDRAMINE: Diphenhydramine (Benadryl) is an antihistamine and has been recommended to help treat your headache and to prevent side effects of other medications used to treat headaches. The medication can be repeated four times daily. Age Elixir (12.5 mg/tsp) 25 mg pill adult 1-2 tabs Antihistamines may cause drowsiness, especially with the first dose. Do not operate machinery or drive while under the effects of the medication. Do not combine the medication with alcohol, or with any other medication without talking to your doctor. INTRAVENOUS COMPAZINE FOR HEADACHE: You have received therapy for headaches, using intravenous Compazine. This treatment is dramatically successful in relieving the headache in about 50 percent of cases. When it works, it provides a rapid method of eliminating the headache without resorting to narcotics (and the problems associated with them). Most patients still feel fully alert after the Compazine, but others may be slightly drowsy. It's best not to drive or work with machinery for six to eight hours. Do not take alcohol or other medication unless you discuss it with the doctor. If you develop tightness and spasms in your muscles, especially the neck and tongue, you should return. This is a side effect which can be treated. TORADOL INJECTION: You have been given an injection of ketorolac tromethamine (Toradol). This is an excellent, safe drug for pain control. It also has potent antiinflammatory action. You should have significant pain relief within about one hour. Toradol is not addicting and is non-sedating. It does not interfere with driving or work. Call or return if you develop itching, hives, shortness of breath, or rash. FOLLOW-UP CARE: If you have been referred to a physician for follow-up care, call the physician s office for an appointment as you were instructed or within the next two days. If you experience worsening or a significant change in your symptoms, notify the physician immediately or return to the Emergency Department at any time for re-evaluation. Prescriptions: Prochlorperazine Maleate [Compazine 10 mg Tablet] 10 mg PO Q6HP PRN #10 tablet PRN Reason: Forms: Elevated Blood Pressure, Return to Work
[2018-02-13 02:11] VITALS: BP 136/86
== END 2018-02-13 02:25 | disposition home or self-care (01) ==
LOC: ER 22:30
DX: G43.909 Migraine, unspecified, not intractable, without status migrainosus (principal); R11.0 Nausea; R03.0 Elevated blood-pressure reading, without diagnosis of hypertension; Z87.891 Personal history of nicotine dependence
CPT/HCPCS: 99283; 96361; 96374; 96375; J1200; J1885; J0780; J7030

== ENCOUNTER 2018-07-25 11:48 | Emergency (ER) | payer BC ==
[2018-07-25] MEDS ORDERED: ASPIRIN 81 MG TABLET, CHEWABLE PO ONE (12:14)
[2018-07-25] MEDS ORDERED: NITROGLYCERIN 0.4 MG/TAB 25 TAB/BOTTLE SL ONE (12:15)
--- NOTE | 2018-07-25 12:15 | ER Document Report ---
ED Medical Screen (RME) - General Chief Complaint: Chest Pain Stated Complaint: CHEST PAIN Time Seen by Provider: 07/25/18 12:07 TRAVEL OUTSIDE OF THE [place] IN LAST 30 DAYS: No - Related Data Allergies/Adverse Reactions: codeine [Codeine] Adverse Reaction (Unknown, Verified 07/25/18 11:48) VOMITING Past Medical History Neurological Medical History: Reports: Hx Migraine Renal/ Medical History: Denies: Hx Peritoneal Dialysis Musculoskeltal Medical History: Reports Hx Arthritis, Reports Hx Musculoskeletal Trauma Psychiatric Medical History: Denies: Hx Depression Traumatic Medical History: Reports: Hx Fractures - Bilateral ankles all toes all fingers clavicle and coccyx, dislocated shoul Past Surgical History: Reports: Hx Abdominal Surgery - hernia repair with mesh, Hx Cholecystectomy, Hx Myringotomy, Hx Umbilical Hernia - With mesh - Immunizations Immunizations up to date: Yes Hx Diphtheria, Pertussis, Tetanus Vaccination: Yes Physical Exam - Vital signs Vitals: Temp Pulse Resp BP Pulse Ox 98.0 F 80 16 165/96 H 98 07/25/18 11:50 07/25/18 11:50 07/25/18 11:50 07/25/18 11:50 07/25/18 11:50 Course - Re-evaluation Re-evalutation: 07/25/18 12:15 43-year-old gentleman the presents for chest pain and nausea which started while he was driving today. I have seen and evaluated this patient in rapid medical screening exam fashion. I have initiated a evaluation and workup, this patient will require further investigation evaluation and disposition determination by secondary provider. - Vital Signs Vital signs: Temp Pulse Resp BP Pulse Ox 98.0 F 80 16 165/96 H 98 07/25/18 11:50 07/25/18 11:50 07/25/18 11:50 07/25/18 11:50 07/25/18 11:50
--- NOTE | 2018-07-25 12:30 | ER Document Report ---
ED General - General Chief Complaint: Chest Pain Stated Complaint: CHEST PAIN Time Seen by Provider: 07/25/18 12:07 Mode of Arrival: Ambulatory Information source: Patient Notes: 43 year old Male presents to the emergency department for chest pain that started about 30 minutes prior to arrival. Patient says he was driving when felt discomfort under his left shoulder blade. He thought this was just gas. 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 Lightheadedness resolved and patient then felt numbness in his left arm and heaviness in the chest. Symptoms continued until received nitro in triage. Patient denies hypertension, hyperlipidemia, diabetes, smoking, history of CAD, family history of CAD. He also denies any shortness of breath, recent travel, surgery, calf pain/swelling, history of DVT/PE, malignancy, hormone use. TRAVEL OUTSIDE OF THE [place] IN LAST 30 DAYS: No - HPI Onset: Just prior to arrival Quality of pain: Pressure Severity: Mild Associated symptoms: None Exacerbated by: Denies Relieved by: Other - nitro Similar symptoms previously: No Recently seen / treated by doctor: No - Related Data Allergies/Adverse Reactions: codeine [Codeine] Adverse Reaction (Unknown, Verified 07/25/18 11:48) VOMITING Past Medical History - General Information source: Patient - Social History Smoking Status: Former Smoker Frequency of alcohol use: Occasional Drug Abuse: None Family History: Reviewed & Not Pertinent Patient has suicidal ideation: No Patient has homicidal ideation: No Neurological Medical History: Reports: Hx Migraine Renal/ Medical History: Denies: Hx Peritoneal Dialysis GI Medical History: Reports: Hx Hiatal Hernia - inguinal hernia Musculoskeletal Medical History: Reports Hx Arthritis, Reports Hx Musculoskeletal Trauma Psychiatric Medical History: Denies: Hx Depression Traumatic Medical History: Reports: Hx Fractures - Bilateral ankles all toes all fingers clavicle and coccyx, dislocated shoul Past Surgical History: Reports: Hx Abdominal Surgery - hernia repair with mesh, Hx Cholecystectomy, Hx Myringotomy, Hx Umbilical Hernia - With mesh - Immunizations Immunizations up to date: Yes Hx Diphtheria, Pertussis, Tetanus Vaccination: Yes Review of Systems - Review of Systems Constitutional: No symptoms reported EENT: No symptoms reported Cardiovascular: Chest pain, Lightheaded Respiratory: No symptoms reported Gastrointestinal: No symptoms reported Genitourinary: No symptoms reported Musculoskeletal: No symptoms reported Skin: No symptoms reported Hematologic/Lymphatic: No symptoms reported Neurological/Psychological: No symptoms reported -: Yes All other systems reviewed and negative Physical Exam - Vital signs Vitals: Temp Pulse Resp BP Pulse Ox 98.0 F 80 16 165/96 H 98 07/25/18 11:50 07/25/18 11:50 07/25/18 11:50 07/25/18 11:50 07/25/18 11:50 - Notes Notes: PHYSICAL EXAMINATION: GENERAL: Well-appearing, well-nourished and in no acute distress. HEAD: Atraumatic, normocephalic. EYES: Pupils equal round and reactive to light, extraocular movements intact, sclera anicteric, conjunctiva are normal. ENT: Nares patent, oropharynx clear without exudates. Moist mucous membranes. NECK: Normal range of motion, supple without lymphadenopathy LUNGS: Breath sounds clear to auscultation bilaterally and equal. No wheezes rales or rhonchi. HEART: Regular rate and rhythm without murmurs ABDOMEN: Soft, nontender, nondistended abdomen. No guarding, no rebound. No masses appreciated. Musculoskeletal: Normal range of motion, no pitting or edema. No cyanosis. NEUROLOGICAL: Cranial nerves grossly intact. Normal speech, normal gait. Normal sensory, motor exams PSYCH: Normal mood, normal affect. SKIN: Warm, Dry, normal turgor, no rashes or lesions noted. Course - Re-evaluation Re-evalutation: 07/25/18 12:30 EKG: Ventricular rate 78, IL interval 136, castration 98, QTc 442, sinus rhythm, no ST segment elevation. T wave inversion in leads V2, V3. 07/25/18 15:07 Patient's troponin is WNL. Continues to be asymptomatic. Will obtain repeat troponin and EKG. Heart score 2. 07/25/18 17:14 Second troponin obtained. Is normal. Patient is asymptomatic. I will discharge the patient home. I will give the patient cardiology follow-up with Dr. Haider. I also gave him a primary care physician to follow-up with. Patient instructed to return to the emergency department if he has worsening sym ptoms, to follow-up with the design engineering intern and primary care physician this week, and to take [id number] medication as needed for symptom relief. Patient is agreeable with plan of care. - Vital Signs Vital signs: Temp Pulse Resp BP Pulse Ox 98.0 F 80 9 L 132/92 H 94 07/25/18 11:50 07/25/18 11:50 07/25/18 13:01 07/25/18 13:01 07/25/18 13:01 - Laboratory Result Diagrams: 07/25/18 12:45 07/25/18 12:45 Laboratory results interpreted by me: 07/25/18 07/25/18 12:45 12:45 RBC 5.70 H Glucose 121 H AST 60 H ALT 151 H Discharge - Discharge Clinical Impression: Chest pain Qualifiers: Chest pain type: unspecified Qualified Code(s): R07.9 - Chest pain, unspecified Condition: Good Disposition: HOME, SELF-CARE Instructions: Chest Pain of Unclear Cause ([facility]) Referrals: INDRA HAIDER MD [ACTIVE STAFF] - Follow up as needed ROBERT WARNER MD [COMMUNITY BASED STAFF] - Follow up as needed
--- NOTE | 2018-07-25 12:46 | EKG REPORT ---
SEVERITY:- BORDERLINE ECG - SINUS RHYTHM BORDERLINE T ABNORMALITIES, ANT-LAT LEADS : Confirmed by: Jaymie Monk MD 25-Jul-2018 12:44:58
[2018-07-25 12:55] LABS: ABSOLUTE BASOPHILS # (AUTO) 0.1 10^3/uL (0.0-0.2); ABSOLUTE EOSINOPHILS # (AUTO) 0.1 10^3/uL (0.0-0.6); ABSOLUTE LYMPHOCYTES (AUTO) 1.8 10^3/uL (0.5-4.7); ABSOLUTE MONOCYTES (AUTO) 0.5 10^3/uL (0.1-1.4); ABSOLUTE NEUT (AUTO) 3.2 10^3/uL (1.7-8.2); EOSINOPHILS % (AUTO) 2.5 % (0-6); HEMATOCRIT 48.4 % (37.9-51.0); HEMOGLOBIN 16.9 g/dL (13.5-17.0); LYMPHOCYTES % (AUTO) 31.4 % (13-45); MEAN CORPUSCULAR HEMOGLOBIN 29.6 pg (27.0-33.4); MEAN CORPUSCULAR HGB CONC 34.9 g/dL (32.0-36.0); MEAN CORPUSCULAR VOLUME 85 fl (80-97); MONOCYTES % (AUTO) 8.7 % (3-13); PLATELET COUNT 250 10^3/uL (150-450); RED CELL DISTRIBUTION WIDTH 13.2 % (11.5-14.0); SEGMENTED NEUTROPHILS % (AUTO) 56.4 % (42-78); TOTAL CELLS COUNTED % (AUTO) 100 %; WHITE BLOOD COUNT 5.8 10^3/uL (4.0-10.5)
--- NOTE | 2018-07-25 13:00 | RADIOLOGY REPORT (SQ) ---
EXAM DESCRIPTION: CHEST SINGLE VIEW COMPLETED DATE/TIME: 07/25/2018 12:50 pm REASON FOR STUDY: chest pain COMPARISON: 08/03/2016 EXAM PARAMETERS: NUMBER OF VIEWS: One view. TECHNIQUE: Single frontal radiographic view of the chest acquired. RADIATION DOSE: NA LIMITATIONS: None. FINDINGS: LUNGS AND PLEURA: No opacities, masses or pneumothorax. No pleural effusion. MEDIASTINUM AND HILAR STRUCTURES: No masses. Contour normal. HEART AND VASCULAR STRUCTURES: Heart normal in size. Normal vasculature. BONES: No acute findings. HARDWARE: None in the chest. OTHER: No other significant finding. IMPRESSION: NO ACUTE RADIOGRAPHIC FINDING IN THE CHEST. TECHNICAL DOCUMENTATION: JOB ID: [id number] [employer]- All Rights Reserved Reading location - IP/workstation name: [email or web address]
[2018-07-25 13:14] LABS: ALANINE AMINOTRANSFERASE 151 U/L (21-72); ALBUMIN 4.5 g/dL (3.5-5.0); ALKALINE PHOSPHATASE 86 U/L (38-126); ANION GAP 9 (5-19); ASPARTATE AMINO TRANSFERASE 60 U/L (17-59); BILIRUBIN,DIRECT 0.3 mg/dL (0.0-0.4); BILIRUBIN,TOTAL 0.8 mg/dL (0.2-1.3); BLOOD UREA NITROGEN 15 mg/dL (7-20); CALCIUM 9.8 mg/dL (8.4-10.2); CARBON DIOXIDE 25 mmol/L (22-30); CHLORIDE 105 mmol/L (98-107); CREATINE KINASE 139 U/L (55-170); GLUCOSE 121 mg/dL (75-110); POTASSIUM 4.3 mmol/L (3.6-5.0); SODIUM 139.3 mmol/L (137-145); TOTAL PROTEIN 7.8 g/dL (6.3-8.2)
[2018-07-25 13:26] LABS: CREATINE KINASE MB 1.88 ng/mL (<4.55)
[2018-07-25 13:28] LABS: TROPONIN I < 0.012 ng/mL
[2018-07-25 13:34] VITALS: BP 132/92
== END 2018-07-25 17:48 | disposition home or self-care (01) ==
LOC: ER 11:48
DX: R07.89 Other chest pain (principal); R42 Dizziness and giddiness; R20.0 Anesthesia of skin; I10 Essential (primary) hypertension; I25.10 Atherosclerotic heart disease of native coronary artery without angina pectoris; E11.9 Type 2 diabetes mellitus without complications; Z82.49 Family history of ischemic heart disease and other diseases of the circulatory system; Z87.891 Personal history of nicotine dependence
CPT/HCPCS: 36415; 71045; 80053; 82550; 82553; 84484; 85025; 93005; 93010; 99285

== ENCOUNTER 2018-07-26 09:08 | Observation (INO) | payer BC ==
[2018-07-26] MEDS ORDERED: ASPIRIN 81 MG TABLET, CHEWABLE PO ONE (09:41)
[2018-07-26 10:12] LABS: ABSOLUTE BASOPHILS # (AUTO) 0.1 10^3/uL (0.0-0.2); ABSOLUTE EOSINOPHILS # (AUTO) 0.1 10^3/uL (0.0-0.6); ABSOLUTE LYMPHOCYTES (AUTO) 1.4 10^3/uL (0.5-4.7); ABSOLUTE MONOCYTES (AUTO) 0.5 10^3/uL (0.1-1.4); ABSOLUTE NEUT (AUTO) 3.7 10^3/uL (1.7-8.2); EOSINOPHILS % (AUTO) 1.7 % (0-6); HEMATOCRIT 44.4 % (37.9-51.0); HEMOGLOBIN 15.6 g/dL (13.5-17.0); LYMPHOCYTES % (AUTO) 24.4 % (13-45); MEAN CORPUSCULAR HEMOGLOBIN 29.9 pg (27.0-33.4); MEAN CORPUSCULAR HGB CONC 35.1 g/dL (32.0-36.0); MEAN CORPUSCULAR VOLUME 85 fl (80-97); MONOCYTES % (AUTO) 8.7 % (3-13); PLATELET COUNT 241 10^3/uL (150-450); RED BLOOD COUNT 5.22 10^6/uL (4.35-5.55); RED CELL DISTRIBUTION WIDTH 13.3 % (11.5-14.0); SEGMENTED NEUTROPHILS % (AUTO) 64.2 % (42-78); TOTAL CELLS COUNTED % (AUTO) 100 %; WHITE BLOOD COUNT 5.8 10^3/uL (4.0-10.5)
[2018-07-26] MEDS ORDERED: NITROGLYCERIN 0.4 MG/TAB 25 TAB/BOTTLE SL ONE (10:13)
--- NOTE | 2018-07-26 10:21 | RADIOLOGY REPORT (SQ) ---
EXAM DESCRIPTION: CHEST SINGLE VIEW COMPLETED DATE/TIME: 07/26/2018 10:09 am REASON FOR STUDY: cp COMPARISON: 07/25/2018 EXAM PARAMETERS: NUMBER OF VIEWS: One view. TECHNIQUE: Single frontal radiographic view of the chest acquired. RADIATION DOSE: NA LIMITATIONS: None. FINDINGS: LUNGS AND PLEURA: No opacities, masses or pneumothorax. No pleural effusion. MEDIASTINUM AND HILAR STRUCTURES: No masses. Contour normal. HEART AND VASCULAR STRUCTURES: Heart normal in size. Normal vasculature. BONES: No acute findings. HARDWARE: None in the chest. OTHER: No other significant finding. IMPRESSION: NO ACUTE RADIOGRAPHIC FINDING IN THE CHEST. TECHNICAL DOCUMENTATION: JOB ID: [id number] [employer]- All Rights Reserved Reading location - IP/workstation name: [email or web address]
[2018-07-26 10:36] LABS: ALANINE AMINOTRANSFERASE 130 U/L (21-72); ALBUMIN 4.2 g/dL (3.5-5.0); ALKALINE PHOSPHATASE 78 U/L (38-126); ANION GAP 6 (5-19); ASPARTATE AMINO TRANSFERASE 48 U/L (17-59); BILIRUBIN,DIRECT 0.2 mg/dL (0.0-0.4); BILIRUBIN,TOTAL 0.6 mg/dL (0.2-1.3); BLOOD UREA NITROGEN 12 mg/dL (7-20); CALCIUM 9.2 mg/dL (8.4-10.2); CARBON DIOXIDE 27 mmol/L (22-30); CHLORIDE 107 mmol/L (98-107); CREATINE KINASE 129 U/L (55-170); GLUCOSE 93 mg/dL (75-110); POTASSIUM 4.3 mmol/L (3.6-5.0); SODIUM 139.5 mmol/L (137-145); TOTAL PROTEIN 7.3 g/dL (6.3-8.2)
[2018-07-26 10:45] LABS: CREATINE KINASE MB 1.31 ng/mL (<4.55)
[2018-07-26 10:47] LABS: TROPONIN I < 0.012 ng/mL
[2018-07-26] MEDS ORDERED: ACETAMINOPHEN 325 MG TABLET PO ONE (11:51)
--- NOTE | 2018-07-26 11:56 | ER Document Report ---
ED General - General Chief Complaint: Chest Pain > 30 Stated Complaint: CHEST PAIN Time Seen by Provider: 07/26/18 10:00 Mode of Arrival: Ambulatory Information source: Patient, Relative TRAVEL OUTSIDE OF THE [place] IN LAST 30 DAYS: No - HPI Patient complains to provider of: Chest pain Onset: Other - Is a 43-year-old man who is otherwise healthy that presents for his second time in 24 hours for left-sided chest pressure which caused nausea thereafter and tingling in the left arm. He notes that it did make him lightheaded today it happened while he was at work prompting him to become concerned and return the emergency room. Yesterday when he had a similar episode he was given a single dose of nitroglycerin and aspirin which relieved his chest pain. He denies any history of anything like this in the past but does note that he has had significant family cardiac history with family members who have of heart attacks at young age. - Related Data Allergies/Adverse Reactions: codeine [Codeine] Adverse Reaction (Unknown, Verified 07/26/18 09:12) VOMITING Past Medical History - General Information source: Patient - Social History Smoking Status: Never Smoker Chew tobacco use (# tins/day): No Frequency of alcohol use: None Drug Abuse: None Family History: Reviewed & Not Pertinent Patient has suicidal ideation: No Patient has homicidal ideation: No Neurological Medical History: Reports: Hx Migraine Renal/ Medical History: Denies: Hx Peritoneal Dialysis GI Medical History: Reports: Hx Hiatal Hernia - inguinal hernia Musculoskeletal Medical History: Reports Hx Arthritis, Reports Hx Musculoskeletal Trauma Psychiatric Medical History: Denies: Hx Depression Traumatic Medical History: Reports: Hx Fractures - Bilateral ankles all toes all fingers clavicle and coccyx, dislocated shoul Past Surgical History: Reports: Hx Abdominal Surgery - hernia repair with mesh, Hx Cholecystectomy, Hx Myringotomy, Hx Umbilical Hernia - With mesh - Immunizations Immunizations up to date: Yes Hx Diphtheria, Pertussis, Tetanus Vaccination: Yes Review of Systems - Review of Systems -: Yes All other systems reviewed and negative Physical Exam - Vital signs Vitals: Temp Pulse Resp BP Pulse Ox 98.1 F 88 16 146/90 H 99 07/26/18 09:23 07/26/18 09:23 07/26/18 09:23 07/26/18 09:23 07/26/18 09:23 Interpretation: Normal - General General appearance: Appears well, Alert - HEENT Head: Normocephalic, Atraumatic Eyes: Normal Pupils: PERRL - Respiratory Respiratory status: No respiratory distress Chest status: Nontender Breath sounds: Normal Chest palpation: Normal - Cardiovascular Rhythm: Regular Heart sounds: Normal auscultation Murmur: No - Abdominal Inspection: Normal Distension: No distension Bowel sounds: Normal Tenderness: Nontender Organomegaly: No organomegaly - Back Back: Normal, Nontender - Extremities General upper extremity: Normal inspection, Nontender, Normal color, Normal ROM, Normal temperature General lower extremity: Normal inspection, Nontender, Normal color, Normal ROM, Normal temperature, Normal weight bearing. No: Alex's sign - Neurological Neuro grossly intact: Yes Cognition: Normal Orientation: AAOx4 Alexa Coma Scale Eye Opening: Spontaneous Alexa Coma Scale Verbal: Oriented Alexa Coma Scale Motor: Obeys Commands Alexa Coma Scale Total: 15 Speech: Normal Motor strength normal: LUE, RUE, LLE, RLE Sensory: Normal - Psychological Associated symptoms: Normal affect, Normal mood - Skin Skin Temperature: Warm Skin Moisture: Dry Skin Color: Normal Course - Re-evaluation Re-evalutation: 07/27/18 15:57 This is a well-appearing 43-year-old man who is had return of chest pain in 24 hours which yesterday was relieved with nitroglycerin. I am concerned that this gentleman has potentially developed angina, yesterday he did have some ST segment flattening which was new as opposed to previous. Today he has a return of chest pain, will administer nitroglycerin and reassess. Patient did improve after nitroglycerin does have a low-grade headache will administer Tylenol. Patient with 2- troponins in the emergency department he has had a return of chest pains never had a stress test does have a significant family history. His age confers a score of 0 His history confers a score of 2 His EKG confirms a score of 1 His risk factors confer a score of 1 His troponin confers score is 0 His heart score is 4 given that this is a second presentation has been unable to follow-up prior to today we will plan for admission and observation and monitoring in emergency department as well as the hospital. Have spoken to the on-call hospitalist who agrees for observation of this patient to telemetry bed. We will continue to monitor emergency department until he is appropriately evaluating disposition through the hospitalist service. - Vital Signs Vital signs: Temp Pulse Resp BP Pulse Ox 97.6 F 65 16 135/78 H 98 07/27/18 14:30 07/27/18 14:30 07/27/18 14:30 07/27/18 14:30 07/27/18 14:30 - Laboratory Result Diagrams: 07/27/18 04:00 07/27/18 04:00 Laboratory results interpreted by me: 07/26/18 09:50 ALT 130 H Discharge - Discharge Clinical Impression: Chest pain Qualifiers: Chest pain type: unspecified Qualified Code(s): R07.9 - Chest pain, unspecified Condition: Good Disposition: ADMITTED OBSERVATION Admitting Provider: [facility] Admitted: Telemetry
[2018-07-26] MEDS ORDERED: MAG HYDROX/AL HYDROX/SIMETH SUSP 30 ML UDCUP PO PRN (12:06)
[2018-07-26] MEDS ORDERED: ONDANSETRON HCL INJ/PF 4 MG/2 ML SDV IV PRN (12:06)
[2018-07-26] MEDS ORDERED: NITROGLYCERIN 0.4 MG/TAB 25 TAB/BOTTLE SL PRN (12:06)
[2018-07-26] MEDS ORDERED: MORPHINE SULFATE 10 MG/ML INJ IV PRN (12:06)
[2018-07-26 12:44] LABS: URINE AMPHETAMINES SCREEN NEGATIVE; URINE BARBITURATES SCREEN NEGATIVE; URINE BENZODIAZEPINES SCREEN NEGATIVE; URINE COCAINE SCREEN NEGATIVE; URINE MARIJUANA (THC) SCREEN NEGATIVE; URINE METHADONE SCREEN NEGATIVE; URINE PHENCYCLIDINE SCREEN NEGATIVE
--- NOTE | 2018-07-26 13:00 | EKG REPORT ---
SEVERITY:- OTHERWISE NORMAL ECG - SINUS RHYTHM BORDERLINE LEFT AXIS DEVIATION : Confirmed by: Avi Morrissey MD 26-Jul-2018 12:58:55
--- NOTE | 2018-07-26 14:27 | PDOC H&P ---
History of Present Illness Admission Date/PCP: 07/26/18 12:08 Patient complains of: Chest pain History of Present Illness: MIGUEL SOTO is a 43 year old male with a past medical history significant for migraines and nonalcoholic fatty liver who presented to the emergency department yesterday with a report of sudden onset stabbing pain between his shoulder blades associated with dizziness, nausea, and left arm numbness while driving a car. He presented to the emergency department where chest pain rule out was completed with 2- troponins, and EKG demonstrating normal sinus rhythm only remarkable for flattened T waves, benign chest x-ray, and otherwise u nremarkable labs and exam. The patient was discharged home with recommendations to follow-up with his primary care provider and obtain referral for a administration professional. This morning, while at work, the patient had a repeat episode of pain. 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 Therefore, he reported back to the emergency department. Evaluation in the emergency department today again revealed benign chest x-ray, unchanged EKG, negative troponin and otherwise unremarkable laboratory evaluation including a negative UDS. He was provided sublingual nitroglycerin tab x1 which relieved his discomfort immediately. His only complaint at present is a headache. He is referred to the hospitalist service for admission and management for additional chest pain rule out. Past Medical History Cardiac Medical History: Reports: None Pulmonary Medical History: Reports: None EENT Medical History: Reports: None Neurological Medical History: Reports: Migraine Endocrine Medical History: Reports: Obesity Renal/ Medical History: Reports: None Malignancy Medical History: Reports: None GI Medical History: Reports: Hiatal Hernia - inguinal hernia, Other - Nonalcoholic fatty liver Musculoskeltal Medical History: Reports: Arthritis Skin Medical History: Reports: None Psychiatric Medical History: Reports: None Denies: Depression Traumatic Medical History: Reports: None Hematology: Reports: None Infectious Medical History: Reports: None Past Surgical History Past Surgical History: Reports: Cholecystectomy, Herniorrhaphy Social History Information Source: Patient Lives with: Spouse/Significant other Smoking Status: Former Smoker Last Time Smoked: 1999 Frequency of Alcohol Use: Social Drugs: None Hx Prescription Drug Abuse: No - Advance Directive Resuscitation Status: Full Code Surrogate healthcare decision maker:: The patient's . Family History Family History: CAD, COPD, Hypertension, Malignancy Parental Family History Reviewed: Yes Children Family History Reviewed: Yes Sibling(s) Family History Reviewed.: Yes Medication/Allergy Home Medications: No Home Medications 07/26/18 Allergies/Adverse Reactions: codeine [Codeine] Adverse Reaction (Unknown, Verified 07/26/18 09:12) VOMITING Review of Systems Constitutional: ABSENT: chills, fever(s), headache(s), weight gain, weight loss Eyes: ABSENT: visual disturbances Ears: ABSENT: hearing changes Cardiovascular: PRESENT: as per HPI Respiratory: ABSENT: cough, dyspnea, hemoptysis Gastrointestinal: PRESENT: nausea. ABSENT: abdominal pain, constipation, diarrhea, hematemesis, hematochezia, vomiting Genitourinary: ABSENT: dysuria, hematuria Musculoskeletal: ABSENT: joint swelling Integumentary: ABSENT: rash, wounds Neurological: PRESENT: dizziness. ABSENT: abnormal gait, abnormal speech, confusion, focal weakness, syncope Psychiatric: ABSENT: anxiety, depression, homidical ideation, suicidal ideation Endocrine: ABSENT: cold intolerance, heat intolerance, polydipsia, polyuria Hematologic/Lymphatic: ABSENT: easy bleeding, easy bruising Physical Exam Vital Signs: Temp Pulse Resp BP Pulse Ox 98.1 F 88 12 120/81 93 07/26/18 09:23 07/26/18 09:23 07/26/18 11:03 07/26/18 11:03 07/26/18 11:03 Intake & Output 07/25/18 07/26/18 07/27/18 06:59 06:59 06:59 Weight 108 kg General appearance: PRESENT: no acute distress, cooperative, well-developed, well-nourished - overweight Head exam: PRESENT: atraumatic, normocephalic Eye exam: PRESENT: conjunctiva pink, EOMI, PERRLA. ABSENT: scleral icterus Ear exam: PRESENT: normal external ear exam Mouth exam: PRESENT: moist, tongue midline Neck exam: ABSENT: carotid bruit, JVD, lymphadenopathy, thyromegaly Respiratory exam: PRESENT: clear to auscultation juanita, symmetrical, unlabored. ABSENT: rales, rhonchi, wheezes Cardiovascular exam: PRESENT: RRR, +S1, +S2. ABSENT: diastolic murmur, rubs, systolic murmur Pulses: PRESENT: normal dorsalis pedis pul Vascular exam: PRESENT: normal capillary refill GI/Abdominal exam: PRESENT: normal bowel sounds, soft. ABSENT: distended, guarding, mass, organolmegaly, rebound, tenderness Rectal exam: PRESENT: deferred Extremities exam: PRESENT: full ROM. ABSENT: calf tenderness, clubbing, pedal edema Neurological exam: PRESENT: alert, awake, oriented to person, oriented to place, oriented to time, oriented to situation, CN II-XII grossly intact. ABSENT: motor sensory deficit Psychiatric exam: PRESENT: appropriate affect, normal mood. ABSENT: homicidal ideation, suicidal ideation Skin exam: PRESENT: dry, intact, warm. ABSENT: cyanosis, rash Results Laboratory Results: 07/26/18 09:50 07/26/18 09:50 07/26/18 07/26/18 09:50 09:50 WBC 5.8 RBC 5.22 Hgb 15.6 Hct 44.4 MCV 85 MCH 29.9 MCHC 35.1 RDW 13.3 Plt Count 241 Seg Neutrophils % 64.2 Lymphocytes % 24.4 Monocytes % 8.7 Eosinophils % 1.7 Basophils % 1.0 Absolute Neutrophils 3.7 Absolute Lymphocytes 1.4 Absolute Monocytes 0.5 Absolute Eosinophils 0.1 Absolute Basophils 0.1 Sodium 139.5 Potassium 4.3 Chloride 107 Carbon Dioxide 27 Anion Gap 6 BUN 12 Creatinine 0.88 Est GFR ( Amer) > 60 Est GFR (Non-Af Amer) > 60 Glucose 93 Calcium 9.2 Total Bilirubin 0.6 AST 48 ALT 130 H Alkaline Phosphatase 78 Total Protein 7.3 Albumin 4.2 07/26/18 07/26/18 09:50 09:50 Creatine Kinase 129 CK-MB (CK-2) 1.31 Troponin I < 0.012 Impressions: Chest X-Ray 07/26/18 09:41 IMPRESSION: NO ACUTE RADIOGRAPHIC FINDING IN THE CHEST. Assessment & Plan - Diagnosis (1) Chest pain Qualifiers: Chest pain type: unspecified Qualified Code(s): R07.9 - Chest pain, unspecified Is this a current diagnosis for this admission?: Yes Plan: The patient presents with intermittent chest pain x 2 days, increasing in frequency and severity. Initially described as stabbing, and associated with nausea, dizziness, and left arm numbness. His discomfort progressed to include crushing chest pain. Symptoms resolved with SL Nitro tab x 1. Chest xray is benign. EKG demonstrated NSR with left axis deviation (chronic) and flattened T waves; no ST segment changes. EKG today is unchanged from the EKG obtained in the emergency department yesterday. Laboratory evaluation is benign; troponins are negative x1 today. Negative x2 yesterday. Lipase is pending. Patient is admitted to the medical floor and continuous cardiac telemetry. He is provided full dose aspirin today; will continue daily aspirin 81 mg. Full dose Lovenox given the suspicious nature of his discomfort and progression of symptoms. We will continue to trend troponins. Nuclear stress testing in the morning. Nitroglycerin sublingual tabs as needed; IV morphine for unrelieved discomfort. Cardiac diet. (2) Obesity (BMI 30.0-34.9) Is this a current diagnosis for this admission?: Yes Plan: Dietary discretion is advised. Cardiac diet. - Time Time Spent: 30 to 50 Minutes Medications reviewed and adjusted accordingly: Yes Anticipated discharge: Home
[2018-07-26] MEDS ORDERED: ATORVASTATIN CALCIUM 20 MG TABLET PO SCH (22:00)
[2018-07-26] MEDS: FAMOTIDINE 20 MG TABLET PO SCH (22:02)
[2018-07-26] MEDS: ENOXAPARIN SODIUM INJ 100 MG/1 ML DISP.SYRIN SUBCUT SCH (22:03)
[2018-07-27 05:01] LABS: HEMATOCRIT 44.3 % (37.9-51.0); HEMOGLOBIN 15.7 g/dL (13.5-17.0); MEAN CORPUSCULAR HEMOGLOBIN 30.5 pg (27.0-33.4); MEAN CORPUSCULAR HGB CONC 35.5 g/dL (32.0-36.0); MEAN CORPUSCULAR VOLUME 86 fl (80-97); PLATELET COUNT 200 10^3/uL (150-450); RED BLOOD COUNT 5.15 10^6/uL (4.35-5.55); RED CELL DISTRIBUTION WIDTH 13.1 % (11.5-14.0); WHITE BLOOD COUNT 5.7 10^3/uL (4.0-10.5)
[2018-07-27 05:28] LABS: ANION GAP 7 (5-19); BLOOD UREA NITROGEN 13 mg/dL (7-20); CALCIUM 8.9 mg/dL (8.4-10.2); CARBON DIOXIDE 25 mmol/L (22-30); CHLORIDE 107 mmol/L (98-107); CHOLESTEROL 225.94 mg/dL (0-200); GLUCOSE 139 mg/dL (75-110); SODIUM 138.9 mmol/L (137-145)
[2018-07-27 05:39] LABS: DIRECT LDL 115 mg/dL (<100)
[2018-07-27 05:47] LABS: TRIGLYCERIDES 713 mg/dL (<150)
[2018-07-27] MEDS ORDERED: ASPIRIN 81 MG TABLET, ENT COATED PO SCH (10:00)
[2018-07-27] MEDS: FAMOTIDINE 20 MG TABLET PO SCH (11:03)
[2018-07-27] MEDS: ENOXAPARIN SODIUM INJ 100 MG/1 ML DISP.SYRIN SUBCUT SCH (11:12)
[2018-07-27] MEDS ORDERED: REGADENOSON INJ 0.4 MG/5 ML DISP.SYRIN IV ONE (11:26)
[2018-07-27] MEDS ORDERED: IBUPROFEN 600 MG TABLET PO PRN (11:29)
--- NOTE | 2018-07-27 12:10 | DRAGON STRESS TEST REPORT ---
Intravenous Lexiscan Cardiolite stress test using single photon emmision computerized tomography. Date of procedure: 07/27/2018. Ordering Provider: Ms. Veronica Carlos, nurse practitioner.Patient's status: Inpatient. Indication: Chest pain. Coronary risk factors: Age, and family history of coronary artery disease. Resting EKG: Sinus Rhythm. Within Normal Limits. Stress EKG:Transfer n is o changes of ischemia. There is The patient had transient dizziness, which resolved with drinking Pepsi. He had no chest pain or discomfort. There was no arrhythmias seen. Reason for termination: Protocol. Conclusions: Normal EKG and hemodynamic response to IV Lexiscan. Nuclear data: At rest the patient was given 13.99 millicuries of technetium 99m sestamibi injected intravenously. As per protocol rest non gated SPECT images were obtained. Subsequently the patient was given intravenous Lexiscan at a dose of 0.4 mg in 5 mL intravenously, followed by flush with normal saline. Subsequently the stress dose of 45.3 millicuries of technetium 99m sestamibi was injected intravenously. As per protocol stress gated images were obtained. Nuclear interpretation: Review of images showed that all segments of the myocardium had normal perfusion at rest, and normal perfusion post stress with IV Lexiscan. All segments of the myocardium had normal motion, contraction, and thickening by gated study. T. I D. ratio was normal at 0.97. There is no transient ischemic dilatation of the left ventricle. Computer read rest, and stress left ventricular ejection fraction were 52 %, and 53 %, respectively. Visually both the stress and rest ejection fractions were normal, and greater than 55%. Conclusion: 1. There is no scintigraphic evidence of Lexiscan induced myocardial ischemia. 2. There is no scintigraphic evidence of myocardial infarction/scar. Recommendations: Aggressive risk factor modification, and treating the underlying co- morbidities. MTDD
[2018-07-27 14:32] VITALS: BP 135/78
--- NOTE | 2018-07-27 14:45 | PDOC DISCHARGE SUMMARY ---
General - Admit/Disc Date/PCP Admission Date/Primary Care Provider: 07/26/18 12:08 The patient needs to establish with a primary care physician. Discharge Date: 07/27/18 - Discharge Diagnosis (1) Chest pain Is this a current diagnosis for this admission?: Yes Summary: The patient had a negative Cardiolite stress test. Troponins x3 were undetectable. We discussed other possible etiologies for chest pain. 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 Musculoskeletal is a possibility. We also reviewed esophageal issues including reflux and esophageal spasm. Even though stress test was negative I did encourage the patient to establish with a primary care physician. (2) Hyperlipidemia Is this a current diagnosis for this admission?: Yes Summary: The patient has marked hyperlipidemia. His triglycerides are over 700, his total cholesterol is 225 and his LDL is 115 with a low HDL. I will ask him to continue his Lipitor and take an aspirin daily. Because of his hyperlipidemia and cardiac risk factor I will ask him to follow-up with Dr. Monk and establish with a primary care physician. (3) Steatohepatitis, nonalcoholic Is this a current diagnosis for this admission?: Yes Summary: The patient has not seen a doctor in some time. This has not been treated. We will start with statin therapy to reduce his cardiac risk. He may need a fibrillate as well. Should at least follow up with primary care if not gastroenterology. - Additional Information Resuscitation Status: Full Code Discharge Diet: Cardiac Discharge Activity: Activity As Tolerated Prescriptions: Atorvastatin Calcium [Lipitor 20 mg Tablet] 20 mg PO QHS 30 Days #30 tablet Home Medications: Aspirin [Ecotrin 81 mg EC Tablet] 81 mg PO DAILY tabec 07/27/18 Atorvastatin Calcium [Lipitor 20 mg Tablet] 20 mg PO QHS 30 Days #30 tablet 07/27/18 Famotidine [Pepcid 20 mg Tablet] 20 mg PO Q12 tablet 07/27/18 History of Present Illness Patient complains of: Chest pain History of Present Illness: MIGUEL SOTO is a 43 year old male had severe substernal chest pain. The patient was driving in his car and developed sharp pain between the shoulder blades. He had numbness radiating to his left arm as well as nausea and lightheadedness. He presented to the emergency department and had 2- troponins. He was discharged home and suggested that he follow-up with cardiology. The very next day while at work performing a physical chore he developed sharp chest pain again. This time he was admitted to observation for a formal rule out. Hospital Course Hospital Course: The patient's hospital course was unremarkable. He had undetectable troponins x3 with no acute EKG changes. He had a Cardiolite stress test that was negative. He has not had any chest pain today. He did have a lipid panel and his triglycerides were over 700 (he has a history of nonalcoholic st eatohepatitis is). His LDL was 115 and his total cholesterol was 225 with a low HDL of 20. He was started on atorvastatin and a baby aspirin. He will need to follow-up with cardiology as well as establishing a primary care physician. He also has a subtle systolic murmur that he was unaware of previously. Physical Exam Vital Signs: Temp Pulse Resp BP Pulse Ox 97.6 F 65 16 141/87 H 98 07/27/18 12:26 07/27/18 12:26 07/27/18 12:26 07/27/18 12:26 07/27/18 12:26 Intake & Output 07/26/18 07/27/18 07/28/18 06:59 06:59 06:59 Intake Total 420 Balance 420 Weight 108.2 kg General appearance: PRESENT: no acute distress, cooperative, well-developed Head exam: PRESENT: normocephalic Respiratory exam: PRESENT: clear to auscultation juanita, symmetrical, unlabored. ABSENT: accessory muscle use, prolonged expiratory phas, rales, rhonchi, wheezes Cardiovascular exam: PRESENT: RRR, +S1, +S2, systolic murmur - 2/6 GI/Abdominal exam: PRESENT: normal bowel sounds, soft. ABSENT: distended, tenderness Musculoskeletal exam: PRESENT: normal inspection Neurological exam: PRESENT: alert, awake, oriented to person, oriented to place, oriented to time, oriented to situation, CN II-XII grossly intact Psychiatric exam: PRESENT: appropriate affect, normal mood. ABSENT: agitated, anxious Focused psych exam: ABSENT: restlessness Results Laboratory Results: 07/27/18 04:00 07/27/18 04:00 07/26/18 07/27/18 07/27/18 09:50 04:00 04:00 WBC 5.7 RBC 5.15 Hgb 15.7 Hct 44.3 MCV 86 MCH 30.5 MCHC 35.5 RDW 13.1 Plt Count 200 Sodium 138.9 Potassium 4.0 Chloride 107 Carbon Dioxide 25 Anion Gap 7 BUN 13 Creatinine 0.81 Est GFR ( Amer) > 60 Est GFR (Non-Af Amer) > 60 Glucose 139 H Calcium 8.9 Triglycerides 713 H Cholesterol 225.94 H LDL Cholesterol Direct 115 H VLDL Cholesterol UNABLE TO CALCULATE HDL Cholesterol 28 L Lipase 86.2 TSH 07/27/18 04:08 WBC RBC Hgb Hct MCV MCH MCHC RDW Plt Count Sodium Potassium Chloride Carbon Dioxide Anion Gap BUN Creatinine Est GFR ( Amer) Est GFR (Non-Af Amer) Glucose Calcium Triglycerides Cholesterol LDL Cholesterol Direct VLDL Cholesterol HDL Cholesterol Lipase TSH 3.11 07/26/18 07/26/18 07/26/18 09:50 09:50 13:26 Creatine Kinase 129 CK-MB (CK-2) 1.31 Troponin I < 0.012 < 0.012 07/26/18 17:50 Creatine Kinase CK-MB (CK-2) Troponin I < 0.012 Impressions: Chest X-Ray 07/26/18 09:41 IMPRESSION: NO ACUTE RADIOGRAPHIC FINDING IN THE CHEST. Qualifiers - * PATIENT BEING DISCHARGED WITH ANY OF THE FOLLOWING DIAGNOSIS: No Plan Discharge Plan: As outlined above the patient needs to follow-up with Dr. Monk for cardiac risk reduction as well as establish with a new primary care provider. He does have a history of non-alcoholic steatohepatitis and so if his primary care physician is not comfortable monitoring this then he should establish with gastroenterology as well. Time Spent: Less than 30 Minutes
== END 2018-07-27 15:15 | disposition home or self-care (01) ==
LOC: ER 09:08 → EH 12:08 → 5 15:20
PROVIDERS: ADMIT Internal Medicine; ATTEND Internal Medicine
DX: R07.2 Precordial pain (principal); E78.5 Hyperlipidemia, unspecified; K75.81 Nonalcoholic steatohepatitis (NASH); M25.519 Pain in unspecified shoulder; R20.0 Anesthesia of skin; R11.0 Nausea; R42 Dizziness and giddiness; R01.1 Cardiac murmur, unspecified; M54.89 Other dorsalgia; R51 Headache; E66.9 Obesity, unspecified; Z68.34 Body mass index [BMI] 34.0-34.9, adult; Z86.69 Personal history of other diseases of the nervous system and sense organs; Z90.49 Acquired absence of other specified parts of digestive tract; Z87.891 Personal history of nicotine dependence; Z82.49 Family history of ischemic heart disease and other diseases of the circulatory system; Z82.5 Family history of asthma and other chronic lower respiratory diseases; Z79.899 Other long term (current) drug therapy; Z79.82 Long term (current) use of aspirin
CPT/HCPCS: 93005; 99285; 36415 ×2; 82553; 82550; 83690; 84443; 85025; 85027; 80048; 80053; 84484; 80307; 80061; 93017; 71045; 78452; 93010; G0378 ×3; A9500; J2785; J3490; J1650; Q9969

== ENCOUNTER 2019-03-05 12:20 | Emergency (ER) | payer BC ==
[2019-03-05] MEDS ORDERED: ASPIRIN 81 MG TABLET, CHEWABLE PO ONE (12:39)
--- NOTE | 2019-03-05 12:59 | RADIOLOGY REPORT (SQ) ---
EXAM DESCRIPTION: CHEST SINGLE VIEW COMPLETED DATE/TIME: 03/05/2019 12:49 pm REASON FOR STUDY: chest pain COMPARISON: 07/26/2018 EXAM PARAMETERS: NUMBER OF VIEWS: One view. TECHNIQUE: Single frontal radiographic view of the chest acquired. RADIATION DOSE: NA LIMITATIONS: None. FINDINGS: LUNGS AND PLEURA: No opacities, masses or pneumothorax. No pleural effusion. MEDIASTINUM AND HILAR STRUCTURES: No masses. Contour normal. HEART AND VASCULAR STRUCTURES: Heart normal in size. Normal vasculature. BONES: No acute findings. HARDWARE: None in the chest. OTHER: No other significant finding. IMPRESSION: NO ACUTE RADIOGRAPHIC FINDING IN THE CHEST. TECHNICAL DOCUMENTATION: JOB ID: [id number] [employer]- All Rights Reserved Reading location - IP/workstation name: [email or web address]
[2019-03-05 13:40] LABS: ABSOLUTE BASOPHILS # (AUTO) 0.1 10^3/uL (0.0-0.2); ABSOLUTE EOSINOPHILS # (AUTO) 0.1 10^3/uL (0.0-0.6); ABSOLUTE LYMPHOCYTES (AUTO) 1.4 10^3/uL (0.5-4.7); ABSOLUTE MONOCYTES (AUTO) 0.4 10^3/uL (0.1-1.4); ABSOLUTE NEUT (AUTO) 3.6 10^3/uL (1.7-8.2); EOSINOPHILS % (AUTO) 2.3 % (0-6); HEMOGLOBIN 16.1 g/dL (13.5-17.0); LYMPHOCYTES % (AUTO) 25.1 % (13-45); MEAN CORPUSCULAR HEMOGLOBIN 29.9 pg (27.0-33.4); MEAN CORPUSCULAR HGB CONC 35.1 g/dL (32.0-36.0); MEAN CORPUSCULAR VOLUME 85 fl (80-97); MONOCYTES % (AUTO) 7.7 % (3-13); PLATELET COUNT 235 10^3/uL (150-450); SEGMENTED NEUTROPHILS % (AUTO) 63.9 % (42-78); TOTAL CELLS COUNTED % (AUTO) 100 %; WHITE BLOOD COUNT 5.6 10^3/uL (4.0-10.5)
--- NOTE | 2019-03-05 13:57 | ER Document Report ---
ED General - General Chief Complaint: Chest Pain Stated Complaint: CHEST PAIN Time Seen by Provider: 03/05/19 13:42 TRAVEL OUTSIDE OF THE [place] IN LAST 30 DAYS: No - HPI Notes: Patient is a 44-year-old male with history of migraines and nonalcoholic fatty liver who presents complaining of feeling chest pressure with left arm heaviness and tingling today. Patient states that he was going outside around 9:00 to go mow his grass when he started feeling the pressure and heaviness in the left arm. Patient states he then went back inside and his symptoms improved. Symptoms started returning a couple hours after that. They have since resolved upon arrival to the emergency department. Patient states that he is currently feeling well and has been able to eat and drink without difficult he. He is ur inating normally and having normal bowel movements. Patient does report having a migraine a couple days ago as well as diarrhea yesterday which has both since resolved. Patient states that he had symptoms similar back in July and had a cardiac work-up involving cardiac stress test as well as echo that was unremarkable. Patient states that he has been under a lot of stress lately with recent passing of friends and family. No SI/HI. No other concerns or complaints at this time. Denies any prolonged immobilization, distance travel, recent surgery/trauma, personal cancer history, hormone use, smoking, or previous DVT/PE. Denies any headache, fever, neck pain, changes in vision/speech/mentation/hearing, URI, sore throat, palpitations, syncope, cough, shortness of breath, wheeze, dyspnea, abdominal pain, nausea/vomiting/diarrhea, urinary retention, dysuria, hematuria, loss of control of bowel or bladder, numbness, saddle anesthesia, muscle paralysis/weakness, or rash. - Related Data Allergies/Adverse Reactions: codeine [Codeine] Adverse Reaction (Unknown, Verified 03/05/19 12:21) VOMITING Past Medical History - Social History Smoking Status: Never Smoker Chew tobacco use (# tins/day): No Frequency of alcohol use: None Drug Abuse: None Family History: Reviewed & Not Pertinent Patient has suicidal ideation: No Patient has homicidal ideation: No Neurological Medical History: Reports: Hx Migraine Renal/ Medical History: Denies: Hx Peritoneal Dialysis GI Medical History: Reports: Hx Hiatal Hernia - inguinal hernia Musculoskeletal Medical History: Reports Hx Arthritis, Reports Hx Musculoskeletal Trauma Psychiatric Medical History: Denies: Hx Depression Traumatic Medical History: Reports: Hx Fractures - Bilateral ankles all toes all fingers clavicle and coccyx, dislocated shoul Past Surgical History: Reports: Hx Abdominal Surgery - hernia repair with mesh, Hx Cholecystectomy, Hx Herniorrhaphy, Hx Myringotomy, Hx Umbilical Hernia - With mesh - Immunizations Immunizations up to date: Yes Hx Diphtheria, Pertussis, Tetanus Vaccination: Yes Review of Systems - Review of Systems -: Yes All other systems reviewed and negative Physical Exam - Vital signs Vitals: Temp Pulse Resp BP Pulse Ox 97.9 F 69 18 156/98 H 100 03/05/19 12:30 03/05/19 12:30 03/05/19 12:30 03/05/19 12:30 03/05/19 12:30 - Notes Notes: PHYSICAL EXAMINATION: GENERAL: Well-appearing, well-nourished and in no acute distress. A&Ox4. Answers questions appropriately. HEAD: Atraumatic, normocephalic. EYES: Pupils equal round and reactive to light, extraocular movements intact, sclera anicteric, conjunctiva are normal. ENT: Nares patent and without discharge. oropharynx clear without exudates. No tonsilar hypertrophy or erythema. Moist mucous membranes. NECK: Normal range of motion, supple without lymphadenopathy LUNGS: Breath sounds clear to auscultation bilaterally and equal. No wheezes rales or rhonchi. HEART: Regular rate and rhythm without murmurs, rubs, gallops. ABDOMEN: Soft, nontender, nondistended abdomen. No guarding, no rebound. Normal bowel sounds present. No CVA tenderness bilaterally. Musculoskeletal: FROM to passive/active. Strength 5+/5. Alex neg. No asymmetry to LE's. Extremities: No cyanosis, clubbing, or edema b/l. Peripheral pulses 2+. Capil anastasia refill less than 3 seconds. NEUROLOGICAL: Normal speech, normal gait. Cranial nerves grossly intact. NIH 0. GCS 15. PSYCH: Normal mood, normal affect. SKIN: Warm, Dry, normal turgor, no rashes or lesions noted. Course - Re-evaluation Re-evalutation: 03/05/19 Patient is an afebrile, well-hydrated 44-year-old male who presents to the ED with atypical chest pain. Vitals are acceptable without any significant tachycardia, tachypnea, or hypoxia. PE is otherwise unremarkable. Patient is nontoxic-appearing and is tolerating p.o. without any difficulties. Pt is currently asymptomatic. NIH 0, GCS 15, cranial nerves grossly intact. CBC, CMP, EKG/cardiac enzymes 2, BNP, UA, CT scan of the head, chest x-ray are all unremarkable for any acute pathology. Patient has a heart score of 2, Wells score of 0, and is PERC negative. Patient does not have any chest pain, dyspnea, or shortness of breath. Patient's presentation and symptomatology creates low suspicion for ACS, PE, pneumothorax, pericarditis, dissection, respiratory compromise, severe dehydration, sepsis, meningitis, acute intracranial pathology, or other systemic emergent condition at this time. Patient is aware that his condition can change from initial presentation and he needs to monitor symptoms closely and seek medical attention for any acute changes. Pt is feeling better and would like to go home. Recommend conservative measures for symptoms. Recheck with your PCM in 2-3 days. Consider consult with Cardiology. Return to the ED with any worsening/concerning symptoms otherwise as reviewed in discharge. Patient is in agreement. - Vital Signs Vital signs: Temp Pulse Resp BP Pulse Ox 97.9 F 69 10 L 136/87 H 97 03/05/19 12:30 03/05/19 12:30 03/05/19 14:17 03/05/19 14:17 03/05/19 14:17 - Laboratory Result Diagrams: 03/05/19 13:15 03/05/19 13:15 Laboratory results interpreted by me: 03/05/19 13:15 Glucose 113 H Discharge - Discharge Clinical Impression: Atypical chest pain Condition: Stable Disposition: HOME, SELF-CARE Instructions: Chest Pain of Unclear Cause ([facility]) Additional Instructions: Maintain adequate fluid and food intake Take home medications as directed Healthy diet Monitor blood pressure daily and keep a log Monitor symptoms for any acute changes Recheck with your PCM in 2-3 days Consider a follow-up with cardiology Return to the ED with any worsening symptoms and/or development of fever, headache, changes in behavior/mentation/vision/speech, chest pain, palpitations, syncope, shortness of breath, trouble breathing, abdominal pain, n/v/d, blood in stool/urine, loss of control of bowel/bladder, urinary retention, muscle weakness/paralysis, saddle anesthesia, numbness/tingling, or other worsening symptoms that are concerning to you. Forms: Elevated Blood Pressure Referrals: BROWN TONG MD [ACTIVE STAFF] - Follow up as needed INDRA HAIDER MD [ACTIVE STAFF] - Follow up as needed
[2019-03-05 14:00] LABS: ALBUMIN 4.6 g/dL (3.5-5.0); ALKALINE PHOSPHATASE 65 U/L (38-126); ANION GAP 8 (5-19); ASPARTATE AMINO TRANSFERASE 39 U/L (17-59); BILIRUBIN,DIRECT 0.2 mg/dL (0.0-0.4); BILIRUBIN,TOTAL 0.4 mg/dL (0.2-1.3); BLOOD UREA NITROGEN 12 mg/dL (7-20); CALCIUM 9.8 mg/dL (8.4-10.2); CARBON DIOXIDE 28 mmol/L (22-30); CHLORIDE 104 mmol/L (98-107); CREATINE KINASE 92 U/L (55-170); GLUCOSE 113 mg/dL (75-110); TOTAL PROTEIN 7.7 g/dL (6.3-8.2)
[2019-03-05 14:12] LABS: CREATINE KINASE MB 1.12 ng/mL (<4.55)
[2019-03-05 14:13] LABS: TROPONIN I < 0.012 ng/mL
--- NOTE | 2019-03-05 14:18 | RADIOLOGY REPORT (SQ) ---
EXAM DESCRIPTION: CT HEAD WITHOUT COMPLETED DATE/TIME: 03/05/2019 2:06 pm REASON FOR STUDY: left arm tingling COMPARISON: 04/22/2011 TECHNIQUE: Axial images acquired through the brain without intravenous contrast. Images reviewed wi th bone, brain and subdural windows. Additional sagittal and coronal reconstructions were generated. Images stored on PACS. All CT scanners at this facility use dose modulation, iterative reconstruction, and/or weight based d osing when appropriate to reduce radiation dose to as low as reasonably achievable (ALARA). [facility]: Dose Right [facility]: CareDose [facility]: Dose Right [facility]: Teradose 4D [facility]: Smart ChoiceStream RADIATION DOSE: CT Rad equipment meets quality standard of care and radiation dose reduction techniq ues were employed. CTDIvol: 53.2 mGy. DLP: 1017 mGy-cm. mGy. LIMITATIONS: None. FINDINGS: VENTRICLES: Normal size and contour. CEREBRUM: No masses. No hemorrhage. No midline shift. No evidence for acute infarction. Normal gra y/white matter differentiation. No areas of low density in the white matter. CEREBELLUM: No masses. No hemorrhage. No alteration of density. No evidence for acute infarction. EXTRAAXIAL SPACES: No fluid collections. No masses. Incidental note is made of erwin cisterna magna. ORBITS AND GLOBE: No intra- or extraconal masses. Normal contour of globe without masses. CALVARIUM: No fracture. PARANASAL SINUSES: No fluid or mucosal thickening. SOFT TISSUES: No mass or hematoma. OTHER: No other significant finding. IMPRESSION: No acute intracranial findings. EVIDENCE OF ACUTE STROKE: NO. COMMENT: Quality ID # [id number]: Final reports with documentation of one or more dose reduction techniques (e.g., Automated exposure control, adjustment of the mA and/or kV according to patient size, use of iterative reconstruction technique) TECHNICAL DOCUMENTATION: JOB ID: [id number] [employer]- All Rights Reserved Reading location - IP/workstation name: [email or web address]
[2019-03-05 14:44] LABS: APPEARANCE,URINE CLEAR; BILIRUBIN,URINE NEGATIVE (NEGATIVE); COLOR,URINE STRAW; GLUCOSE, URINE NEGATIVE (NEGATIVE); KETONES,URINE NEGATIVE (NEGATIVE); LEUKOCYTE ESTERASE,URINE NEGATIVE (NEGATIVE); NITRITE,URINE NEGATIVE (NEGATIVE); PROTEIN,URINE NEGATIVE (NEGATIVE); URINE SPECIFIC GRAVITY 1.006; UROBILINOGEN,URINE NEGATIVE mg/dL (<2.0)
[2019-03-05 18:54] VITALS: BP 123/93
--- NOTE | 2019-03-06 11:40 | EKG REPORT ---
SEVERITY:- NORMAL ECG - SINUS RHYTHM : Confirmed by: Thomas Doyle 06-Mar-2019 11:39:29
== END 2019-03-05 18:54 | disposition home or self-care (01) ==
LOC: ER 12:20
DX: R07.89 Other chest pain (principal); R20.2 Paresthesia of skin; Z63.4 Disappearance and death of family member
CPT/HCPCS: 36415; 70450; 71045; 80053; 81001; 82550; 82553; 83880; 84484; 85025; 93005; 93010; 99285

== ENCOUNTER 2019-09-26 10:49 | Emergency (ER) | payer BC ==
[2019-09-26] MEDS ORDERED: ASPIRIN 81 MG TABLET, CHEWABLE PO ONE (11:11)
--- NOTE | 2019-09-26 11:11 | ER Document Report ---
ED Medical Screen (RME) - General Chief Complaint: Chest Pain Stated Complaint: CHEST PAIN Time Seen by Provider: 09/26/19 11:07 Mode of Arrival: Ambulatory Information source: Patient Notes: 44-year-old male presented to ED for chest pain level for sharp to the center of his chest just to the left for about 2 hours. He states it feels like it shoots through to his back. He states he was at work and he was sweating but he does not know if it was from work or from the chest pain. He is not short of breath at this time. He is alert oriented respirations regular nonlabored speaking in full sentences. He states his blood pressure does sometimes fluctuate up and down but is never stayed elevated. He does not have any high cholesterol. He states he does not have a family history of heart attacks before the age of 50. He states he is a former smoker drinks occasionally and no illicit drugs. I have greeted and performed a rapid initial assessment of this patient. A comprehensive ED assessment and evaluation of the patient, analysis of test results and completion of medical decision making process will be conducted by an additional ED providers. TRAVEL OUTSIDE OF THE [place] IN LAST 30 DAYS: No - Related Data Allergies/Adverse Reactions: codeine [Codeine] Adverse Reaction (Unknown, Verified 09/26/19 11:08) VOMITING Past Medical History Neurological Medical History: Reports: Hx Migraine Renal/ Medical History: Denies: Hx Peritoneal Dialysis GI Medical History: Reports: Hx Hiatal Hernia - inguinal hernia Musculoskeltal Medical History: Reports Hx Arthritis, Reports Hx Musculoskeletal Trauma Psychiatric Medical History: Denies: Hx Depression Traumatic Medical History: Reports: Hx Fractures - Bilateral ankles all toes all fingers clavicle and coccyx, dislocated shoul Past Surgical History: Reports: Hx Abdominal Surgery - hernia repair with mesh, Hx Cholecystectomy, Hx Herniorrhaphy, Hx Myringotomy, Hx Umbilical Hernia - With mesh - Immunizations Immunizations up to date: Yes Hx Diphtheria, Pertussis, Tetanus Vaccination: Yes Physical Exam - Vital signs Vitals: Temp Pulse Resp BP Pulse Ox 97.4 F 81 16 149/86 H 100 09/26/19 11:00 09/26/19 11:00 09/26/19 11:00 09/26/19 11:00 09/26/19 11:00 Course - Vital Signs Vital signs: Temp Pulse Resp BP Pulse Ox 97.4 F 81 16 149/86 H 100 09/26/19 11:00 09/26/19 11:00 09/26/19 11:00 09/26/19 11:00 09/26/19 11:00
--- NOTE | 2019-09-26 11:27 | ER Document Report ---
ED General - General Chief Complaint: Chest Pain Stated Complaint: CHEST PAIN Time Seen by Provider: 09/26/19 11:07 Mode of Arrival: Ambulatory TRAVEL OUTSIDE OF THE [place] IN LAST 30 DAYS: No - HPI Patient complains to provider of: chest pain Notes: 44-year-old male presents with resolved episode of sharp shooting left-sided chest pain 8/10 without radiation nothing made it better or worse. No other associated symptoms. Pain lasted about 15 seconds. Was at work at rest. Patient has history of atypical chest pain with no underlying cardiac disease has been seen in the emergency department last July, again last February, had negative stress test normal echocardiogram also performed. Patient denies any fever or other symptoms. - Related Data Allergies/Adverse Reactions: codeine [Codeine] Adverse Reaction (Unknown, Verified 09/26/19 11:08) VOMITING Past Medical History - General Information source: Patient - Social History Smoking Status: Never Smoker Chew tobacco use (# tins/day): No Drug Abuse: None Family History: Reviewed & Not Pertinent Patient has suicidal ideation: No Patient has homicidal ideation: No Neurological Medical History: Reports: Hx Migraine Renal/ Medical History: Denies: Hx Peritoneal Dialysis GI Medical History: Reports: Hx Hiatal Hernia - inguinal hernia Musculoskeletal Medical History: Reports Hx Arthritis, Reports Hx Musculoskelet al Trauma Psychiatric Medical History: Denies: Hx Depression Traumatic Medical History: Reports: Hx Fractures - Bilateral ankles all toes all fingers clavicle and coccyx, dislocated shoul Past Surgical History: Reports: Hx Abdominal Surgery - hernia repair with mesh, Hx Cholecystectomy, Hx Herniorrhaphy, Hx Myringotomy, Hx Umbilical Hernia - With mesh - Immunizations Immunizations up to date: Yes Hx Diphtheria, Pertussis, Tetanus Vaccination: Yes Review of Systems - Review of Systems Notes: REVIEW OF SYSTEMS: CONSTITUTIONAL: -fevers, -chills EENT: -eye pain, -difficulty swallowing, -nasal congestion CARDIOVASCULAR: positive chest pain, -syncope. RESPIRATORY: -cough, -SOB GASTROINTESTINAL: -abdominal pain, -nausea, -vomiting, -diarrhea GENITOURINARY: -dysuria, -hematuria MUSCULOSKELETAL: -back pain, -neck pain SKIN: -rash or skin lesions. HEMATOLOGIC: -easy bruising or bleeding. LYMPHATIC: -swollen, enlarged glands. NEUROLOGICAL: -altered mental status or loss of consciousness, -headache, - neurologic symptoms PSYCHIATRIC: -anxiety, -depression. ALL OTHER SYSTEMS REVIEWED AND NEGATIVE. Physical Exam - Vital signs Vitals: Temp Pulse Resp BP Pulse Ox 97.4 F 81 16 149/86 H 100 09/26/19 11:00 09/26/19 11:00 09/26/19 11:00 09/26/19 11:00 09/26/19 11:00 - Notes Notes: PHYSICAL EXAMINATION: GENERAL: Well-appearing, well-nourished and in no acute distress. HEAD: Atraumatic, normocephalic. EYES: Pupils equal round and reactive to light, extraocular movements intact, sclera anicteric, conjunctiva are normal. ENT: nares patent, oropharynx clear without exudates. Moist mucous membranes. NECK: Normal range of motion, supple without lymphadenopathy LUNGS: Breath sounds clear to auscultation bilaterally and equal. No wheezes rales or rhonchi. HEART: Regular rate and rhythm without murmurs ABDOMEN: Soft, nontender, normoactive bowel sounds. No guarding, no rebound. No masses appreciated. EXTREMITIES: Normal range of motion, no pitting or edema. No cyanosis. NEUROLOGICAL: Cranial nerves grossly intact. Normal speech, normal gait. No rmal sensory and motor exams. PSYCH: Normal mood, normal affect. SKIN: Warm, Dry, normal turgor, no rashes or lesions noted. Course - Re-evaluation Re-evalutation: 09/26/19 11:36 Well-appearing man no acute distress presents with resolved episode of chest pain. Patient has history of atypical chest pain of unknown etiology. EKG unremarkable. Will obtain extensive work-up including chest x-ray. 09/26/19 12:24 Well-appearing male no acute distress benign physical exam. EKG is no ischemic changes chest x-ray unremarkable extensive lab work-up unremarkable negative troponin. . Patient be discharged home follow-up PCP return if any worsening changes. - Vital Signs Vital signs: Temp Pulse Resp BP Pulse Ox 97.4 F 81 16 149/86 H 100 09/26/19 11:00 09/26/19 11:00 09/26/19 11:00 09/26/19 11:00 09/26/19 11:00 - Laboratory Result Diagrams: 09/26/19 11:31 09/26/19 11:31 Laboratory results interpreted by me: 09/26/19 09/26/19 11:31 11:31 RBC 5.79 H Hgb 17.1 H Potassium 5.1 H Glucose 113 H ALT 77 H Total Protein 8.5 H Albumin 5.1 H - EKG Interpretation by Me Additional EKG results interpreted by me: 09/26/19 11:37 Normal sinus rhythm, no ST elevations or depressions, normal QRS, normal OK, no pathologic T wave inversions. Discharge - Discharge Clinical Impression: Chest pain Qualifiers: Chest pain type: unspecified Qualified Code(s): R07.9 - Chest pain, unspecified Condition: Stable Disposition: HOME, SELF-CARE Instructions: Chest Pain of Unclear Cause ([facility]) Additional Instructions: f/u with PCP
[2019-09-26 11:44] LABS: ABSOLUTE BASOPHILS # (AUTO) 0.1 10^3/uL (0.0-0.2); ABSOLUTE EOSINOPHILS # (AUTO) 0.1 10^3/uL (0.0-0.6); ABSOLUTE LYMPHOCYTES (AUTO) 2.2 10^3/uL (0.5-4.7); ABSOLUTE MONOCYTES (AUTO) 0.6 10^3/uL (0.1-1.4); ABSOLUTE NEUT (AUTO) 4.2 10^3/uL (1.7-8.2); EOSINOPHILS % (AUTO) 1.6 % (0-6); HEMATOCRIT 49.6 % (37.9-51.0); HEMOGLOBIN 17.1 g/dL (13.5-17.0); LYMPHOCYTES % (AUTO) 30.8 % (13-45); MEAN CORPUSCULAR HEMOGLOBIN 29.6 pg (27.0-33.4); MEAN CORPUSCULAR HGB CONC 34.5 g/dL (32.0-36.0); MEAN CORPUSCULAR VOLUME 86 fl (80-97); MONOCYTES % (AUTO) 8.8 % (3-13); PLATELET COUNT 274 10^3/uL (150-450); RED BLOOD COUNT 5.79 10^6/uL (4.35-5.55); RED CELL DISTRIBUTION WIDTH 12.8 % (11.5-14.0); SEGMENTED NEUTROPHILS % (AUTO) 57.8 % (42-78); TOTAL CELLS COUNTED % (AUTO) 100 %; WHITE BLOOD COUNT 7.2 10^3/uL (4.0-10.5)
--- NOTE | 2019-09-26 11:47 | RADIOLOGY REPORT (SQ) ---
EXAM DESCRIPTION: CHEST 2 VIEWS COMPLETED DATE/TIME: 09/26/2019 11:26 am REASON FOR STUDY: Chest pain COMPARISON: 03/05/2019 EXAM PARAMETERS: NUMBER OF VIEWS: two views TECHNIQUE: Digital Frontal and Lateral radiographic views of the chest acquired. RADIATION DOSE: NA LIMITATIONS: none FINDINGS: LUNGS AND PLEURA: No opacities, masses or pneumothorax. No pleural effusion. MEDIASTINUM AND HILAR STRUCTURES: No masses or contour abnormalities. HEART AND VASCULAR STRUCTURES: Heart normal size. No evidence for failure. BONES: No acute findings. HARDWARE: Cholecystectomy clips. OTHER: No other significant finding. IMPRESSION: NO ACUTE RADIOGRAPHIC FINDING IN THE CHEST. TECHNICAL DOCUMENTATION: JOB ID: [id number] [email or web address]- All Rights Reserved Reading location - IP/workstation name: [email or web address]
[2019-09-26 12:08] LABS: ALBUMIN 5.1 g/dL (3.5-5.0); ALKALINE PHOSPHATASE 70 U/L (38-126); ANION GAP 10 (5-19); ASPARTATE AMINO TRANSFERASE 41 U/L (17-59); BILIRUBIN,TOTAL 0.6 mg/dL (0.2-1.3); BLOOD UREA NITROGEN 13 mg/dL (7-20); CALCIUM 10.1 mg/dL (8.4-10.2); CARBON DIOXIDE 30 mmol/L (22-30); CHLORIDE 101 mmol/L (98-107); GLUCOSE 113 mg/dL (75-110); POTASSIUM 5.1 mmol/L (3.6-5.0); TOTAL PROTEIN 8.5 g/dL (6.3-8.2)
[2019-09-26 12:40] VITALS: BP 135/84
--- NOTE | 2019-09-27 11:59 | EKG REPORT ---
SEVERITY:- NORMAL ECG - SINUS RHYTHM : Confirmed by: Thomas Doyle 27-Sep-2019 11:59:22
== END 2019-09-26 12:45 | disposition home or self-care (01) ==
LOC: ER 10:49
DX: R07.9 Chest pain, unspecified (principal); R07.89 Other chest pain; Z88.8 Allergy status to other drugs, medicaments and biological substances
CPT/HCPCS: 36415; 71046; 80053; 84484; 85025; 93005; 93010; 99285

== ENCOUNTER 2020-06-23 09:36 | Emergency (ER) | payer BC ==
[2020-06-23 10:31] LABS: ABSOLUTE EOSINOPHILS # (AUTO) 0.1 10^3/uL (0.0-0.6); ABSOLUTE LYMPHOCYTES (AUTO) 2.3 10^3/uL (0.5-4.7); ABSOLUTE NEUT (AUTO) 9.5 10^3/uL (1.7-8.2); BASOPHILS % (AUTO) 0.4 % (0-2); EOSINOPHILS % (AUTO) 0.5 % (0-6); HEMATOCRIT 46.3 % (37.9-51.0); HEMOGLOBIN 16.1 g/dL (13.5-17.0); LYMPHOCYTES % (AUTO) 17.7 % (13-45); MEAN CORPUSCULAR HEMOGLOBIN 29.5 pg (27.0-33.4); MEAN CORPUSCULAR HGB CONC 34.8 g/dL (32.0-36.0); MEAN CORPUSCULAR VOLUME 85 fl (80-97); MONOCYTES % (AUTO) 7.9 % (3-13); PLATELET COUNT 272 10^3/uL (150-450); RED BLOOD COUNT 5.45 10^6/uL (4.35-5.55); RED CELL DISTRIBUTION WIDTH 12.9 % (11.5-14.0); SEGMENTED NEUTROPHILS % (AUTO) 73.5 % (42-78); TOTAL CELLS COUNTED % (AUTO) 100 %; WHITE BLOOD COUNT 12.9 10^3/uL (4.0-10.5)
[2020-06-23 10:33] LABS: APPEARANCE,URINE CLEAR; BILIRUBIN,URINE NEGATIVE (NEGATIVE); COLOR,URINE STRAW; GLUCOSE, URINE NEGATIVE (NEGATIVE); KETONES,URINE NEGATIVE (NEGATIVE); LEUKOCYTE ESTERASE,URINE NEGATIVE (NEGATIVE); NITRITE,URINE NEGATIVE (NEGATIVE); PROTEIN,URINE NEGATIVE (NEGATIVE); URINE SPECIFIC GRAVITY 1.003; UROBILINOGEN,URINE NEGATIVE mg/dL (<2.0)
[2020-06-23 10:53] LABS: ALBUMIN 4.8 g/dL (3.5-5.0); ALKALINE PHOSPHATASE 81 U/L (38-126); ANION GAP 11 (5-19); ASPARTATE AMINO TRANSFERASE 39 U/L (17-59); BILIRUBIN,DIRECT 0.2 mg/dL (0.0-0.4); BILIRUBIN,TOTAL 1.1 mg/dL (0.2-1.3); BLOOD UREA NITROGEN 13 mg/dL (7-20); CALCIUM 10.2 mg/dL (8.4-10.2); CARBON DIOXIDE 27 mmol/L (22-30); CHLORIDE 102 mmol/L (98-107); GLUCOSE 116 mg/dL (75-110); POTASSIUM 4.3 mmol/L (3.6-5.0); TOTAL PROTEIN 8.2 g/dL (6.3-8.2)
--- NOTE | 2020-06-23 11:39 | ER Document Report ---
ED General - General Chief Complaint: Abdominal Pain Stated Complaint: ABDOMINAL PAIN Time Seen by Provider: 06/23/20 11:38 Primary Care Provider: LIZANDRO SMITH MD [ACTIVE STAFF] - Follow up as needed GINGER JOSHI DO [NO LOCAL MD] - Follow up as needed TRAVEL OUTSIDE OF THE [place] IN LAST 30 DAYS: No - HPI Notes: 45-year-old male presents to the emergency room today with left lower quadrant abdominal pain that is occurred intermittently over the last 5 days but has become progressively worse with time. Patient reports that he usually moves his bowels 3 times a day and today he noticed cassie blood on the outside of his stool, denies any history of hemorrhoids IBS or Crohn's disease. Patient also reports that he has a right inguinal hernia that he noticed a year ago, denies any testicular pain, he did have an umbilical repair done a year ago they said they would watch for the right inguinal hernia. Patient is also reporting he has some indigestion, he took some Tums and it did feel better. He does not have a history of any cardiac issues however he did have a stress test done a year ago for having complaints of chest pain which they worked up and felt that it was anxiety due to stress test being negative. Patient is denying any shortness of breath, chest pain, nausea vomiting or diarrhea. Denies any fevers or chills. Has not tried any new medications foods or travel. Deniespalpitations, shortness of breath, dyspnea, nausea, vomiting, diarrhea, hematuria,LH, dizziness, syncope, headaches, wheezing, ST, URI, neck pain, weakness, bowel or bladder dysfunction, saddle anesthesia, numbness or tingling in bilateral upper or lower extremities equally, muscle paralysis, weakness in bilateral upper or lower extremities equally or rash. Patient denies any recent positive Covid testing or being exposed to anybody who tested positive for Covid - Related Data Allergies/Adverse Reactions: codeine [Codeine] Adverse Reaction (Unknown, Verified 06/23/20 09:42) VOMITING Past Medical History - General Information source: Patient - Social History Smoking Status: Former Smoker Chew tobacco use (# tins/day): No - former Frequency of alcohol use: Occasional Drug Abuse: None Family History: Reviewed & Not Pertinent Patient has homicidal ideation: No Neurological Medical History: Reports: Hx Migraine Renal/ Medical History: Denies: Hx Peritoneal Dialysis GI Medical History: Reports: Hx Hiatal Hernia - inguinal hernia Musculoskeletal Medical History: Reports Hx Arthritis, Reports Hx Musculoskeletal Trauma Psychiatric Medical History: Denies: Hx Depression Traumatic Medical History: Reports: Hx Fractures - Bilateral ankles all toes all fingers clavicle and coccyx, dislocated shoul Past Surgical History: Reports: Hx Abdominal Surgery - hernia repair with mesh, Hx Cholecystectomy, Hx Herniorrhaphy, Hx Myringotomy, Hx Umbilical Hernia - With mesh - Immunizations Immunizations up to date: Yes Hx Diphtheria, Pertussis, Tetanus Vaccination: Yes Review of Systems - Review of Systems Constitutional: No symptoms reported EENT: No symptoms reported Cardiovascular: See HPI Respiratory: No symptoms reported Gastrointestinal: See HPI Genitourinary: No symptoms reported Male Genitourinary: No symptoms reported Musculoskeletal: No symptoms reported Skin: No symptoms reported Hematologic/Lymphatic: No symptoms reported Neurological/Psychological: No symptoms reported Physical Exam - Vital signs Vitals: Temp Pulse Resp BP Pulse Ox 97.6 F 101 H 16 171/104 H 99 06/23/20 09:39 06/23/20 09:39 06/23/20 09:39 06/23/20 09:39 06/23/20 09:39 - Notes Notes: MEDICATIONS: I agree with the patient medications as charted by the RN. ALLERGIES: I agree with the allergies as charted by the RN. PAST MEDICAL HISTORY/PAST SURGICAL HISTORY: Reviewed and agree as charted by RN. SOCIAL HISTORY: Reviewed and agree as charted by RN. FAMILY HISTORY: No significant familial comorbid conditions directly related to patient complaint EXAM: Reviewed vital signs as charted by RN. PHYSICAL EXAMINATION:reviewed vital signs by RN GENERAL: Well-appearing, well-nourished and in no acute distress. HEAD: Atraumatic, normocephalic. EYES: Pupils equal round and reactive to light, extraocular movements intact, sclera anicteric, conjunctiva are normal. ENT: Nares patent, oropharynx clear without exudates. Moist mucous membranes. NECK: Normal range of motion, supple without lymphadenopathy LUNGS: Breath sounds clear to auscultation bilaterally and equal. No wheezes rales or rhonchi. HEART: Regular rate and rhythm without murmurs ABDOMEN: Soft, left lower quadrant tenderness on palpationnondistended abdomen. No guarding, no rebound. No masses appreciated. No CVA tenderness appreciated bilaterally. Reducible right inguinal hernia. Musculoskeletal: Normal range of motion, no pitting or edema. No cyanosis. NEUROLOGICAL: Cranial nerves grossly intact. Normal speech, normal gait. Normal sensory, motor exams PSYCH: Normal mood, normal affect. SKIN: Warm, Dry, normal turgor, no rashes or lesions noted. Course - Re-evaluation Re-evalutation: 06/23/20 16:19 Afebrile vital stable no distress. Nurses notes reviewed. CBC with a white count of 12.9, no shift. No anemia. CMP negative for renal dysfunction, slight elevation of AST at 72 but not 3 times normal limit, troponin 0 0.012, urine unremarkable. EKG negative for ST segment elevations or acute STEMI. CT abdomen pelvis with IV and oral contrast does show acute diverticulitis. Will start patient on outpatient antibiotic therapy of Flagyl and Cipro for 10-day course as well as following up with a carpet weaver as well as primary care provider within 24 to 48 hours. Advised to follow a low fiber diet. All questions and concerns answered by me. Patient's pain was managed with IV morphine and he was sent home with a sixpack of [place]. Advised to increase oral hydration. After performing a Medical Screening Examination, I estimate there is LOW risk for ACUTE APPENDICITIS, BOWEL OBSTRUCTION, ACUTE CHOLECYSTITIS, PERFORATED DIVERTICULITIS, INCARCERATED HERNIA, PANCREATITIS, TESTICULAR TORSION or PERFORATED ULCER, thus I consider the discharge disposition reasonable. Also, there is no evidence or peritonitis, sepsis, or toxicity. I have reevaluated this patient multiple times and no significant life threatening changes are noted. The patient and I have discussed the diagnosis and risks, and we agree with discharging home with close follow-up with the understanding that symptoms and presentations can change. We also discussed returning to the Emergency Department immediately if new or worsening symptoms occur. We have di scussed the symptoms which are most concerning (e.g., bloody stool, fever, changing or worsening pain, intractable vomiting - standard verbal up date) that necessitate immediate return. - Vital Signs Vital signs: Temp Pulse Resp BP Pulse Ox 98.3 F 98 16 131/79 H 100 06/23/20 17:06 06/23/20 17:06 06/23/20 17:06 06/23/20 17:06 06/23/20 17:06 - Laboratory Result Diagrams: 06/23/20 10:00 06/23/20 10:00 Laboratory results interpreted by me: 06/23/20 06/23/20 10:00 10:00 WBC 12.9 H Absolute Neuts (auto) 9.5 H Glucose 116 H ALT 72 H - EKG Interpretation by Me EKG shows normal: Sinus rhythm Rate: Normal Rhythm: NSR Additional EKG results interpreted by me: 06/23/20 16:19 Heart rate 87. P axis 41, QRS axis -41, T axis 67. EKG reviewed by supervising ER physician. No STEMI, no ST segment elevations Discharge - Discharge Clinical Impression: Diverticulitis Condition: Stable Disposition: HOME, SELF-CARE Instructions: Diverticulitis ([facility]) Additional Instructions: Your CT today showed that you do have diverticulitis. You do need to start on ciprofloxacin and Flagyl for 10-day course. Please follow-up with carpet weaver as well as your primary care provider. Please follow a diet that is low in popcorn, seeds, etc. follow a low fiber diet. If you have worsening pain please return to the emergency room. Do not drive, drink alcohol or operate machinery while taking medication as it can cause sedation or impairment of cognitive function. Return immediately for any new or worsening symptoms. Follow up with primary care provider, call tomorrow to make followup appointment. Prescriptions: Ciprofloxacin HCl [Cipro 500 mg Tablet] 500 mg PO BID #20 tablet Metronidazole [Flagyl] 500 mg PO BID #20 tablet Forms: Return to Work Referrals: GINGER JOSHI DO [NO LOCAL MD] - Follow up as needed LIZANDRO MSITH MD [ACTIVE STAFF] - Follow up as needed
[2020-06-23] MEDS ORDERED: MAG HYDROX/AL HYDROX/SIMETH SUSP 30 ML UDCUP PO ONE (11:52)
[2020-06-23] MEDS ORDERED: LIDOCAINE 2% VISCOUS SOLN 15 ML UDCUP PO ONE (11:52)
[2020-06-23] MEDS ORDERED: METOCLOPRAMIDE HCL ORAL SOLN 10 MG/10 ML UDCUP PO ONE (11:52)
--- NOTE | 2020-06-23 13:06 | RADIOLOGY REPORT (SQ) ---
EXAM DESCRIPTION: U/S NON-OB PELVIS LTD W/O DOP IMAGES COMPLETED DATE/TIME: 06/23/2020 12:54 pm REASON FOR STUDY: R inguinal hernia COMPARISON: None. TECHNIQUE: Dynamic and static grayscale images acquired of the localized site of clinical concern an d recorded on PACS. Additional selected color Doppler and spectral images recorded. SITE OF CONCERN: Right inguinal canal LIMITATIONS: None. FINDINGS: SKIN AND SUBCUTANEOUS TISSUES: No masses. No fluid collections. No edema. No foreign hannah s. DEEP SOFT TISSUES/MUSCLES: No masses. No fluid collections. No edema. VASCULAR: No increased or decreased vascularity. No occlusions. OTHER: Some echogenic tissue appears to protrude through the right inguinal canal with Valsalva. No definite bowel wall signature. There is apparent reduction with relaxation. IMPRESSION: Ultrasound findings suggestive of reducible fat containing right inguinal hernia. TECHNICAL DOCUMENTATION: JOB ID: [id number] 2010 [employer]- All Rights Reserved Reading location - IP/workstation name: [email or web address]
[2020-06-23] MEDS ORDERED: MORPHINE SULFATE 10 MG/ML INJ IV ONE ×2 (14:49→17:03)
[2020-06-23] MEDS ORDERED: ONDANSETRON HCL INJ/PF 4 MG/2 ML SDV IV ONE (14:49)
--- NOTE | 2020-06-23 16:27 | RADIOLOGY REPORT (SQ) ---
EXAM DESCRIPTION: CT ABD/PELVIS WITH IV ORAL IMAGES COMPLETED DATE/TIME: 06/23/2020 4:03 pm REASON FOR STUDY: LLQ abd pain x 5 days COMPARISON: None. TECHNIQUE: CT scan of the abdomen and pelvis performed with intravenous and oral contrast using corey marty scanning technique with dynamic intravenous contrast injection. Images reviewed with lung, soft t issue, and bone windows. Reconstructed coronal and sagittal MPR images reviewed. Delayed images for e valuation of the urinary system also acquired. All images stored on PACS. All CT scanners at this facility use dose modulation, iterative reconstruction, and/or weight based d osing when appropriate to reduce radiation dose to as low as reasonably achievable (ALARA). [facility]: Dose Right [facility]: CareDose [facility]: Dose Right [facility]: Teradose 4D [facility]: EZ-Ticket CONTRAST TYPE AND DOSE: contrast/concentration: Isovue 350.00 mmol/ml; Total Contrast Delivered: 99. 0 ml; Total Saline Delivered: 69.0 ml RENAL FUNCTION: GFR > 60. RADIATION DOSE: CT Rad equipment meets quality standard of care and radiation dose reduction techniq ues were employed. CTDIvol: 14.9 - 18.0 mGy. DLP: 1895 mGy-cm. . LIMITATIONS: None. FINDINGS: LOWER CHEST: No significant findings. No nodules or infiltrates. LIVER: Normal size. Fatty change. No masses. No dilated ducts. SPLEEN: Normal size. No focal lesions. PANCREAS: No masses. No significant calcifications. No adjacent inflammation or peripancreatic fluid collections. Pancreatic duct not dilated. GALLBLADDER: Surgically absent. ADRENAL GLANDS: No significant masses or asymmetry. RIGHT KIDNEY AND URETER: No solid masses. No significant calcifications. No hydronephrosis or hyd roureter. LEFT KIDNEY AND URETER: No solid masses. No significant calcifications. No hydronephrosis or hydr oureter. AORTA AND VESSELS: No aneurysm. No dissection. Renal arteries, SMA, celiac without stenosis. RETROPERITONEUM: No retroperitoneal adenopathy, hemorrhage or masses. BOWEL AND PERITONEAL CAVITY: Inflammatory changes consistent with diverticulitis distal descending co marilia. No ascites. APPENDIX: Normal. PELVIS: No significant masses. Normal bladder. No free fluid. ABDOMINAL WALL: No masses. No hernias. BONES: No significant or acute findings. OTHER: No other significant finding. IMPRESSION: Diverticulitis distal descending colon. TECHNICAL DOCUMENTATION: JOB ID: [id number] Quality ID # [id number]: Final reports with documentation of one or more dose reduction techniques (e.g., Au tomated exposure control, adjustment of the mA and/or kV according to patient size, use of iterative reconstruction technique) 2010 [employer]- All Rights Reserved Reading location - IP/workstation name: [email or web address]
[2020-06-23] MEDS ORDERED: HYDROCODONE/ACETAMINOPHEN 5-325 MG (6 TAB/ER DISP) PO PRN (16:59)
[2020-06-23 17:07] VITALS: BP 131/79
--- NOTE | 2020-06-23 18:56 | EKG REPORT ---
SEVERITY:- NORMAL ECG - SINUS RHYTHM : Confirmed by: Marlon Gallagher MD 23-Jun-2020 18:54:37
== END 2020-06-23 17:49 | disposition home or self-care (01) ==
LOC: ER 09:36
DX: K57.33 Diverticulitis of large intestine without perforation or abscess with bleeding (principal); K40.90 Unilateral inguinal hernia, without obstruction or gangrene, not specified as recurrent; K30 Functional dyspepsia; R74.01 Elevation of levels of liver transaminase levels; R10.32 Left lower quadrant pain; R10.814 Left lower quadrant abdominal tenderness; Z87.891 Personal history of nicotine dependence
CPT/HCPCS: 93005; 96376; 99284; 96374; 96375; 36415; 83690; 85025; 80053; 81001; 84484; 76857; 74177; 93010; J3490; J2270; J2405